=== PATIENT | female | born 1990 | race Caucasian/White ===

== ENCOUNTER 2017-05-22 19:59 | Emergency (ER) | payer OTHER ==
[~2017-05-22] VITALS: Ht 175.3 cm; Wt 65.8 kg
[~2017-05-22 19:59] MED LIST: BACTRIM DS TAB1 EACH PO; CEPHALEXIN500 MG PO; LEXAPRO10 MG PO; NORCO 5-325 TA1 EACH PO
[2017-05-22] MEDS ORDERED: BACTRIM DS TAB1 EACH PO (21:50)
[2017-05-22] MEDS ORDERED: CEPHALEXIN500 MG PO (21:50)
== END 2017-05-22 22:17 | disposition home or self-care (01) ==
LOC: ED 19:59
DX: L03.113 Cellulitis of right upper limb (principal); L03.116 Cellulitis of left lower limb; Z90.49 Acquired absence of other specified parts of digestive tract
CPT/HCPCS: 99283

== ENCOUNTER 2019-09-20 16:48 | Emergency (ER) | payer OTHER ==
[~2019-09-20] VITALS: Ht 175.3 cm; Wt 81.7 kg
--- OUTSIDE RECORDS SUMMARY | ~2019-09-20 | XMS | Encounter Summary ---
Demographics + + + | Address | [address] | | | [place] [address] | + + + | Home Phone | | + + + | Preferred Language | Unknown | + + + | Marital Status | | + + + | Holiness Affiliation | Unknown | + + + | Race | Unknown | + + + | Ethnic Group | Unknown | + + + Author + + + | Author | [facility] | | | and [place] | + + + | Organization | [facility] | | | and [place] | + + + | Address | Unknown | + + + | Phone | Unavailable | + + + Support + + +---------+ + | Name | Relationship | Address | Phone | + + +---------+ + | Jeanmarie Bharat | ECON | Unknown | | + + +---------+ + Care Team Providers + +------+ + | Care Survey Engineer Name | Role | Phone | + +------+ + PCP | Unavailable | + +------+ + Encounter Details +--------+ + + + + | Date | Type | Department | Care Team | Description | +--------+ + + + + | 05/10/ | Hospital | [facility] | Abbey Morin | Thrombocytopenia | | 2011 - | Encounter | [facility] | [place] [id number] | (FORMERLY [facility]); | | | | CLINICAL DECISION | [address] | Hyperbilirubinemia; | | 05/14/ | | [address] | [place], [place] | Petechiae or | | 2011 | | [place] | [address] | ecchymoses; | | | | [address] | [phone] | Thrombocytopenia, | | | | [phone] | | unspecified (HCC); | | | | | | Petechiae; Myalgia | +--------+ + + + + Social History + +-------+ +--------+------+ | Tobacco Use | Types | Packs/Day | Years | Date | | | | | Used | | + +-------+ +--------+------+ | Never Assessed | | | | | + +-------+ +--------+------+ + + + | Sex Assigned at | Date Recorded | | | | + + + | Not on file | | + + + + + + + | Job Start Date | Occupation | Industry | + + + + | Not on file | Not on file | Not on file | + + + + + + + + | Travel History | Travel Start | Travel End | + + + + + + | No recent travel history available. | + + documented as of this encounter Discharge Summaries Brendan Sahu MD - 05/14/2012 11:35 AM PDTFormatting of this note might be diff erent from the original. Discharge Summaries by Brendan Sahu MD at 05/14/12 2734 Author: Brendan Sahu MD Service: (none) Author Type: Physician Filed: 05/14/12 1832 Date of Service: 05/14/121134 Status: Signed Assembl[employer]: Brendan Sahu MD (Physician) [facility] Service: Hospitalist Discharge Summary Date of Admission: 05/10/2012 Date of Discharge: 05/14/12 Discharge Provider: Brendan Sahu MD Treatment Team: Consulting Physician: Sahra Linares MD Admitting Provider: Abbey Morin MD Discharge Diagnoses: Principal Problem: *Thrombocytopenia, unspecified Active Problems: Petechiae or ecchymoses Hyperbilirubinemia Resolved Problems: * No resolved hospital problems. * Procedures: * No surgery found * Significant Diagnostic Studies: RADHA MENA US PELVIS WITH ENDOVAGINAL 05/12/2012 5:29 PM HISTORY: 21 years. Female. Secondary amenorrhea with new vaginal bleeding TECHNIQUE: US PELVIS WITH ENDOVAGINAL. Pelvic sonogram via transabdominal and transvaginal route with or megahertz and 8-MHz transducers actively.. Total of 49 images obtained. COMPARISON: None. FINDINGS: Anteverted uterus = 6.8 x 2.4 x 5.4 cm. Endometrium = 3.9 mm. There are several bright refl ectors within the endometrium which may represent calcifications. No evidence of mass. No fr ee fluid in the cul-de-sac. The region of the cervix is normal in appearance. The ovaries are sonographically within normal in appearance there is a dominant follicle on the left ovary. Left ovary = 2.1 x 1.2 x 1.7 cm. Right ovary = 2 0.8 x 1.4 x 1.9 cm. IMPRESSION: 1. Overall unremarkable pelvic sonogram. 2. Bright reflectors within the endometrium likely representing some small calcifications c orrelate with clinical history of prior inflammatory process consider follow-up. This report has been prepared with a voice recognition system. The possibility of "sound alike" state wildlife officer errors, addition and/or deletions may occur. If there is any question about this report please contact the originating radiologist. F HISTORY OF PRESENTATION: The patient is a 21 y.o. female with no significant past medical history who presents wit h red dots and bruises all over her body that she initially noted about a week prior to admi ssion. She did not have any trauma or fall recently. Yesterday last night before she went to work she noticed that red dots increased in number all over her legs. She went to work last night at [employer]. 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 About 10 pm last night s he noted bruises of her legs. She also felt fatigued. She did not have any fever or chills. She also noticed that she had some mild blurring of vision earlier but she denies it current ly. She also had mild neck pain, stiffness and mild frontal headaches. She also felt numbnes s of both legs. She denied any recent viral illness preceding this. She denied any blood in the stools, epistaxis, hematuria or syncope. She denied any intake of new medications recent ly. She went to the ED of [facility] in [place], [place]. She was found out to have severe thrombocytopenia with a platelet count of 12,000 transferred here and admitted f or treatment and closer monitoring of her bleeding as she was a high risk for morbidity with the bleeding and low platelets. CT head according to the ED notes revealed no hemorrhage. P atient is adopted so does not know [facility] HOSPITAL COURSE: Patient was admitted, started on 70 mg of prednisone orally daily, Hem/Onc consulted and pl atelets monitored daily, had USG of abdomen and pelvis because of initial elevated liver enz ymes and vaginal bleeding which both improved rapidly after starting the prednisone and plat [place] [id number] by the day on discharge no new bleeding or b ruising noted therefore was discharged on 05/14/12. During work uphad positive OPAL and 2.0 S SB, I did discuss patient with our only [employer] Maker [employer] in [facility] Dr. Arrieta over the phon e and he suggested repeating OPAL and SSB once off the prednisone and if still elevated or if patietn exhibits physical signs of lupus or autoimmune disease like Sjogrens which the liana ent did not show during this admission, PCP or Hem/Onc should arrange referral to [facility] and he would be happy to see the patient on outpatient basis in the office should any o f those 2 eventualities occur. Past Medical History Diagnosis Date E coli infection Past Surgical History Procedure Date Cholecystectomy No Known Allergies Prescriptions prior to admission Medication Sig Dispense Refill Melatonin 3 MG CAPS Take 3 mg by mouth nightly as needed. DISCHARGE EXAM Vital Signs: BP 116/59 | Pulse 65 | Temp(Src) 96.8 F (36 C) (Oral) | Resp 16 | Ht 1.727 m (5' 8") | Wt 71.2 kg (156 lb 15.5 oz) | BMI 23.87 kg/m2 | SpO2 97% | LMP 05/10/2012 | ? N o Physical Exam Nursing note and vitals reviewed. Constitutional: She is oriented to person, place, and time. She appears well-developed and well-nourished. HENT: Head: Normocephalic and atraumatic. Right Ear: External ear normal. Left Ear: External ear normal. Nose: Nose normal. Mouth/Throat: Oropharynx is clear and moist. No oropharyngeal exudate. No bleeding oral mucosa and no enlarged cervical or occipital lymph nodes Eyes: Conjunctivae and EOM are normal. Pupils are equal, round, and reactive to light. Righ t eye exhibits no discharge. Left eye exhibits no discharge. No scleral icterus. Neck: Neck supple. No JVD present. No tracheal deviation present. No thyromegaly present. Cardiovascular: Normal rate, regular rhythm, normal heart sounds and intact distal pulses. Exam reveals no gallop and no friction rub. No murmur heard. Pulmonary/Chest: Effort normal and breath sounds normal. No stridor. No respiratory distres s. She has no wheezes. She has no rales. She exhibits no tenderness. Abdominal: Soft. Bowel sounds are normal. She exhibits no distension and no mass. There is no tenderness. There is no rebound and no guarding. Musculoskeletal: Normal range of motion. She exhibits no edema. Lymphadenopathy: She has no cervical adenopathy. Neurological: She is alert and oriented to person, place, and time. She has normal reflexes . She displays normal reflexes. No cranial nerve deficit. She exhibits normal muscle tone. C oordination normal. Skin: Skin is warm and dry. No erythema. Skin color, texture, turgor normal, small areas of now bluish ecchymoses on right foot and legs, wet mucous membranes, no psoriatic plaques, no added lesions since admission day. Psychiatric: She has a normal mood and affect. Her behavior is normal. Judgment and thought content normal. PLAN Disposition: Home Condition: Good Code Status: Full Code Discharge Instructions Diet general Other restrictions (specify): Scheduling Instructions: Avoid activities that will put you at increased risk of bleeding o r bruising like contact sports, at risk for falls, working with sharp objectsor similar acti elodia Call for: Scheduling Instructions: Go to [facility] if with increased bruising or bleeding Follow up: PCP of her choice which patietn and mom will make appointments for. in 1 week Sahra Linares MD [address] [facility] [address] On May 17 or after platelet count done on 05/16/12 with report to be sent to Dr. David merino office. José Miguel Velarde MD [address] [facility] [address] If needed as discussed above Medication List As of 05/14/2012 6:32 PM START taking these medications omeprazole 20 MG capsule Take 1 capsule by mouth every morning before breakfast. predniSONE 10 MG tablet 7 tablets daily with breakfast starting tomorrow and until you see Dr. 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 You may get these medications from any pharmacy. omeprazole 20 MG capsule predniSONE 10 MG tablet An After Visit Summary was printed and given to the patient. Patient verbalized understanding, agreement, and compliance with discharge plan. Discharge took more than 35 minutes, to include final examination, discussion of admission, and preparation of prescriptions, instructions for on-going care, follow-up and documentati on of discharge summary. Brendan Sahu MD 05/14/2012 documented in this encounter Progress Notes Conversion Transaction, Provider Unknown - 05/14/2012 1:05 PM PDTFormatting of this note m ight be different from the original. Progress Notes by Queenie Delanye RN at 05/14/12 1309 Author: Queenie Delaney RN Service: (none) Author Type: Registered Nurse Filed: 05/14/12 0876 Date of Service: 05/14/12 1305 Status: Signed Assembl[employer]: Queenie Delaney RN (Registered Nurse) D/c instructions and Rx's given and explained to pt and her mother, both state understandin g. Pt escorted via wheelchair to private vehicle. Pt left in stable condition. onver ghassan Transaction, Provider Unknown - 05/14/2012 7:22 AM PDT Progress Notes by Jyothi Bailey RN at 05/14/12 7543 Author: Jyothi Bailey RN Service: (none) Author Type: Registered Nurse Filed: 05/14/12722 Date of Service: 05/14/12721 Status: Signed Assembler [employer]: Jyothi Bailey RN (Registered Nurse) No change in assessment throughout the night, requested Ambien at bedtime, slept well. Den ied any pain or discomfort, small areas of petechiae noted on lower extremities. onver ghassan Transaction, Provider Unknown - 05/13/2012 10:00 PM PDT Progress Notes by Jyothi Bailey RN at 05/13/122199 Author: Jyothi Bailey RN Service: (none) Author Type: Registered Nurse Filed: 05/13/122221 Date of Service: 05/13/122199 Status: Signed Assembler [employer]: Jyothi Bailey RN (Registered Nurse) Patient stated she did not sleep well last night, Ambien offered and patient accepted to he lp sleep tonight. 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 onver ghassan Transaction, Provider Unknown - 05/13/2012 6:28 PM PDT Progress Notes by Queenei Delaney RN at 05/13/121827 Author: Queenie Delaney RN Service: (none) Author Type: Registered Nurse Filed: 05/13/121829 Date of Service: 05/13/121827 Status: Signed Assembler [employer]: Queenie Delaney RN (Registered Nurse) Pt in bed resting quietly with S.O. At bedside, denies needs at this time, no signs of blee ding, vss, will continue to monitor. Sahra Miller Ul - 05/13/2012 12:26 PM PDTFormatting of this note might be different from the origi nal. Progress Notes by Sahra Linares MD at 05/13/12 1226 Author: Sahra Linares MD Service: (none) Author Type: Physician Filed: 05/13/12 9376 Date of Service: 05/13/12 1226 Status: Signed Assembler [employer]: Sahra Linares MD (Physician) [facility] Service: Hematology/Oncology Progress Note Hospital Day: LOS: 3 days Post-Op Day: * No surgery found * SUBJECTIVE Patient Summary: Miss Mena is a 21-year-old female who was admitted to [facility] on May 10, 2012, with complaints of generalized bruising and petechiae on her skin. On further evaluation, the patient was noted to have low platelet count. Peripheral smear showed the patient had giant platelets. The patient was diagnosed with immune-mediated thrombocytopenia. She was started on steroid at 1 mg/kg dose. The patient has tolerated it well. Her Viral serology (hep b& C and HIV) were negative. Events Overnight: The patient at this time feels well. No significant new bleeding reported by the patient. Her vaginal bleeding improving She continues to have generalized weakness and lethargy. No other significant new complaints given by the patient in the last 24 hours. Scheduled Medications lidocaine buffered 1% 0.5 mL Subcutaneous Once omeprazole 20 mg Oral QAM AC Or pantoprazole 40 mg Intravenous QAM AC predniSONE 1 mg/kg Oral Daily with breakfast Continuous Infusions PRN Medications acetaminophen, acetaminophen, morphine, morphine, morphine, ondansetron, ondansetron, polye thylene glycol, zolpidem OBJECTIVE Vital Signs: BP 107/53 | Pulse 60 | Temp(Src) 97.6 F (36.4 C) (Oral) | Resp 16 | Ht 1.727 m (5' 8") | Wt 70.6 kg (155 lb 10.3 oz) | BMI 23.67 kg/m2 | SpO2 98% | LMP 05/10/2012 | ? No Temp: [96.2 F (35.7 C)-97.7 F (36.5 C)] 97.6 F (36.4 C) (05/13 851) BP: (100-115)/(52-66) 107/53 mmHg (05/13 851) Heart Rate: [48-73] 60 (05/13 851) Resp: [16-18] 16 (05/13 851) SpO2: [95 %-99 %] 98 % (05/13 851) Weight: [70.6 kg (155 lb 10.3 oz)] 70.6 kg (155 lb 10.3 oz) (05/12 5756) Skin: Warm, dry and intact with very few bruising and patechia. HEENT: PERRLA. EOMI. Conjunctivae are clear. Sclera anicteric. Oral mucosa is moist and pin k without lesions or evidence of thrush. Lungs: Clear to auscultation without wheezes, rales, or rhonchi. Respiratory effort relaxed . Heart: Regular rate and rhythm without murmurs, gallops, or rubs. Abdomen: Soft, nondistended, nontender. No masses are appreciated. No hepatosplenomegaly. A ctive bowel tones in all 4 quadrants. Lymphatics: There is no cervical, supraclavicular, axillary, or inguinal adenopathy. Extremities: No edema. Peripheral pulses intact. No cyanosis or varicosities. DATA CBC: Lab Results Component Value Date WBC 10.7 05/13/2012 RBC 4.02 05/13/2012 HGB 12.4 05/13/2012 HCT 35.8 05/13/2012 MCV 89.0 05/13/2012 MCH 30.8 05/13/2012 MCHC 34.6 05/13/2012 RDW 37.6 05/13/2012 PLT 36* 05/13/2012 MPV 9.4 05/13/2012 DIFFTYPE AUTOMATED 05/13/2012 CMP: Lab Results Component Value Date NA 145* 05/12/2012 K 3.3* 05/12/2012 CL 109 05/12/2012 CO2 26 05/12/2012 ANIONGAP 12 05/12/2012 GLUF 120* 05/12/2012 BUN 13 05/12/2012 CREATININE 0.92 05/12/2012 BCR 15 05/12/2012 CA 9.5 05/12/2012 PROT 7.2 05/12/2012 ALB 3.8 05/12/2012 GLOB 3.4 05/12/2012 BILITOT 0.8 05/12/2012 ALP 66 05/12/2012 AST 3* 05/12/2012 ALT 24 05/12/2012 EGFR >60 05/12/2012 PROBLEM LIST Principal Problem: *Thrombocytopenia, unspecified Active Problems: Petechiae or ecchymoses Hyperbilirubinemia ASSESSMENT & PLAN A 23-year-old female who was admitted to [facility] with a low platelet count, who thinks the patient was diagnosed with immune-mediated thrombocytopenia and was started on steroids. She does not have any new bleeding however her platelet count has improved to 36,000 from a previous level of 21,000 yesterday. The patient continues to have improvement in vaginal bleeding. Recommend to continue Prednisone. She has mild hypernatremia and hypokalemia. Treated as per hospitalitis. If platelets continue to improve she can be discharged tomarrow. Recommend follow up as out patient within a week. Code Status: Full Code SAHRA LINARES MD 05/13/2012 uis Alberto, Brendan Benito MD - 05/13/2012 7:55 AM PDT Progress Notes by Brendan Sahu MD at 05/13/12 0755 Author: Brendan Sahu MD Service: (none) Author Type: Physician Filed: 05/13/12 1131 Date of Service: 05/13/12 0755 Status: Signed Assembler [employer]: Brendan Sahu MD (Physician) [facility] Service: Hospitalist Progress Note Hospital Day: LOS: 3 days Post-Op Day: * No surgery found * SUBJECTIVE The patient is a 21 y.o. female with no significant past medical history who presents with red dots and bruises all over her body that she initially noted about a week prior to admiss [facility]. She did not have any trauma or fall recently. Yesterday last night before she went to [facility] she noticed that red dots increased in number all over her legs. She went to work last n ight at [employer]. 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 About 10 pm last night she noted bruises of her legs. She also felt fatigued. She did not have any fever or chills. e also noticed that she had some mild blurring of vision earlier but she denies it currently . She also had mild neck pain, stiffness and mild frontal headaches. She also felt numbness of both legs. She denied any recent viral illness preceding this. She denied any blood in e stools, epistaxis, hematuria or syncope. She denied any intake of new medications recently . She went to the ED of [facility] in [place], [place]. She was found out to sharma ve severe thrombocytopenia with a platelet count of 12,000. CT head according to the ED note s revealed no hemorrhage. Patient is adopted so does not know [facility] Events Overnight: Patient is seen and examined at bedside on follow up. Overnight Vital Sig ns have continued to be stable and patient continues to feel better no vomiting, no bloody s tools, no CP/Sob/. No new Petechiae or bleeding elswher vainal bleeding lesser . Scheduled Medications lidocaine buffered 1% 0.5 mL Subcutaneous Once omeprazole 20 mg Oral QAM AC Or pantoprazole 40 mg Intravenous QAM AC predniSONE 1 mg/kg Oral Daily with breakfast Continuous Infusions PRN Medications acetaminophen, acetaminophen, morphine, morphine, morphine, ondansetron, ondansetron, polye thylene glycol, zolpidem OBJECTIVE Vital Signs: BP 100/52 | Pulse 48 | Temp(Src) 97.7 F (36.5 C) (Oral) | Resp 18 | Ht 1.727 m (5' 8") | Wt 70.6 kg (155 lb 10.3 oz) | BMI 23.67 kg/m2 | SpO2 99% | LMP 05/10/2012 | ? No General Appearance: Alert, cooperative, no distress, appears stated age Head: Normocephalic, without obvious abnormality, atraumatic Eyes: PERRL, conjunctiva/corneas clear, EOM's intact, fundi benign, both eyes Ears: Normal TM's and external ear canals, both ears Nose: Nares normal, septum midline, mucosa normal no signs of dryness, no drainage or sinu s tenderness Throat: Lips, mucosa, and tongue normal; teeth and gums normal Neck: Supple, symmetrical, trachea midline, no adenopathy; thyroid: no enlargement/tenderness/nodules; no carotid bruit or JVD Back: Symmetric, no curvature, ROM normal, no CVA tenderness Lungs: Clear to auscultation bilaterally, respirations unlabored Chest Wall: No tenderness or deformity Heart: Regular rate and rhythm, S1 and S2 normal, no murmur, rub or gallop Abdomen: Soft, non-tender, bowel sounds active all four quadrants, no masses, no organomegaly Extremities: Extremities normal, atraumatic, no cyanosis or edema Pulses: 2+ and symmetric all extremities Skin: Skin color, texture, turgor normal, small areas of ecchymoses on right foot and legs , wet mucous membranes, no psoriatic plaques Lymph nodes: Cervical, supraclavicular, and axillary nodes normal Neurologic: CNII-XII intact, normal strength, sensation and reflexes throughout DATA CBC: Lab Results Component Value Date WBC 10.7 05/13/2012 RBC 4.02 05/13/2012 HGB 12.4 05/13/2012 HCT 35.8 05/13/2012 MCV 89.0 05/13/2012 MCH 30.8 05/13/2012 MCHC 34.6 05/13/2012 RDW 37.6 05/13/2012 PLT 36* 05/13/2012 MPV 9.4 05/13/2012 DIFFTYPE AUTOMATED 05/13/2012 CMP: Lab Results Component Value Date NA 145* 05/12/2012 K 3.3* 05/12/2012 CL 109 05/12/2012 CO2 26 05/12/2012 ANIONGAP 12 05/12/2012 GLUF 120* 05/12/2012 BUN 13 05/12/2012 CREATININE 0.92 05/12/2012 BCR 15 05/12/2012 CA 9.5 05/12/2012 PROT 7.2 05/12/2012 ALB 3.8 05/12/2012 GLOB 3.4 05/12/2012 BILITOT 0.8 05/12/2012 ALP 66 05/12/2012 AST 3* 05/12/2012 ALT 24 05/12/2012 EGFR >60 05/12/2012 PT/INR: No results found for this basename: PROTIME, INR PTT: No results found for this basename: APTT [APTT PROBLEM LIST Principal Problem: *Thrombocytopenia, unspecified Active Problems: Petechiae or ecchymoses Hyperbilirubinemia ASSESSMENT & PLAN Patient Active Hospital Problem List: Thrombocytopenia, unspecified (05/10/2012) Assessment: improving Plan: continue with prednisone and continue monitoring improvement per discussion w/ Dr. Linares today maybe can be discarged to khoury. when risk of sudden bleed less given Petechia e or ecchymoses (05/10/2012) Assessment: stable Plan: continue to monitor Hyperbilirubinemia (05/10/2012) Assessment: from her ? Autoimmune reactivity, continues to have normal values today, abdo pipe and pelvic USG no significant abnormality Plan: discontinue daily CMP I explained radiology and lab findings and plan of care to patient and she verbalized unde rstanding and agreement and had no more questions for me after my interaction with her. 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 Disposition: Inpatient Code Status: Full Code Brendan Sahu MD 05/13/2012 onversion Transaction, Provider Unknown - 05/13/2012 7:41 AM PDTFormatting of this note might be diff erent from the original. Progress Notes by Jackie Mancia RN at 05/13/12740 Author: Jackie Mancia RN Service: (none) Author Type: Registered Nurse Filed: 05/13/12741 Date of Service: 05/13/12740 Status: Signed Assembl[employer]: Jackie Mancia RN (Registered Nurse) Pt had a good night without any complaints. States she is hoping to go home today. Will con tinue to monitor. onver ghassan Transaction, Provider Unknown - 05/12/2012 4:35 PM PDT Progress Notes by Queenie Delaney RN at 05/12/12 163 Author: Queenie Delaney RN Service: (none) Author Type: Registered Nurse Filed: 05/12/125 Date of Service: 05/12/121634 Status: Signed Assembl[employer]: Queenie Delaney RN (Registered Nurse) Pt in room visiting with her S.O. Denies needs at this time. Vss, will continue to monitor. andy Sharma ARNP - 05/12/2012 9:37 AM PDT Progress Notes by JESSY Hannah at 05/12/1237 Author: JESSY Hannah Service: (none) Author Type: Advanced Registered Nurse Janes ctitioner Filed: 05/12/12 0949 Date of Service: 05/12/12936 Status: Signed Assembler [employer]: JESSY Hannah (Advanced Registered Nurse [place]) Cosigner: Sahra Linares MD at 05/13/12 1221 [facility] Service: Hematology/Oncology Progress Note Hospital Day: LOS: 2 days Post-Op Day: * No surgery found * SUBJECTIVE Patient Summary: This is a 21year female admitted with bruising, petechiae, and vagin al bleeding. Peripheral smear shows giant platelets consistent with peripheral destruction o f platelets. 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 Events Overnight: Patient complains of some nausea and mild epigastric discomfort. Co ntinues to have vaginal bleeding, but states it has decreased in flow in the past 2 days. De nies other sources of bleeding, or new bruising. Denies shortness of breath, chest pain, fev ers. Last BM was 2 days ago. Mother is in room and supportive. Scheduled Medications lidocaine buffered 1% 0.5 mL Subcutaneous Once omeprazole 20 mg Oral QAM AC Or pantoprazole 40 mg Intravenous QAM AC predniSONE 1 mg/kg Oral Daily with breakfast Continuous Infusions PRN Medications acetaminophen, acetaminophen, morphine, morphine, morphine, ondansetron, ondansetron, polye thylene glycol, zolpidem OBJECTIVE Vital Signs: BP 111/53 | Pulse 56 | Temp(Src) 97.2 F (36.2 C) (Oral) | Resp 16 | Ht 1.727 m (5' 8") | Wt 69.5 kg (153 lb 3.5 oz) | BMI 23.30 kg/m2 | SpO2 98% | LMP 05/10/2012 | ? No EXAM: BP 111/53 | Pulse 56 | Temp(Src) 97.2 F (36.2 C) (Oral) | Resp 16 | Ht 1.727 m (5' 8") | Wt 69.5 kg (153 lb 3.5 oz) | BMI 23.30 kg/m2 | SpO2 98% | LMP 05/10/2012 | ? No General: Alert and oriented. No acute distress. Vital signs are stable and within normal ra nge. Affect appropriate. ECOG status 0. Pain level is 0 on a scale of 0-10. Skin: Warm, dry and intact without rashes or ulcers. Lungs: Clear to auscultation without wheezes, rales, or rhonchi. Respiratory effort relaxed . Heart: Regular rate and rhythm without murmurs, gallops, or rubs. Abdomen: Soft, nondistended, nontender. No masses are appreciated. No hepatosplenomegaly. A ctive bowel tones in all 4 quadrants. Lymphatics: There is no cervical, supraclavicular, axillary, or inguinal adenopathy. Extremities: No edema. Peripheral pulses intact. No cyanosis or varicosities. Psychiatric: No signs of depression or anxiety. Maintains good eye contact, asks appropriat e questions, remains fully engaged. DATA CBC: Lab Results Component Value Date WBC 8.4 05/11/2012 RBC 4.33 05/11/2012 HGB 13.1 05/11/2012 HCT 38.4 05/11/2012 MCV 88.7 05/11/2012 MCH 30.2 05/11/2012 MCHC 34.1 05/11/2012 RDW 36.3* 05/11/2012 PLT 18* 05/11/2012 MPV 9.9 05/11/2012 DIFFTYPE AUTOMATED 05/11/2012 CMP: Lab Results Component Value Date NA 142 05/11/2012 K 3.9 05/11/2012 CL 111* 05/11/2012 CO2 23 05/11/2012 ANIONGAP 13 05/11/2012 GLUF 116* 05/11/2012 BUN 15 05/11/2012 CREATININE 0.72 05/11/2012 BCR 21 05/11/2012 CA 9.6 05/11/2012 PROT 7.3 05/11/2012 ALB 4.0 05/11/2012 GLOB 3.3 05/11/2012 BILITOT 2.3* 05/11/2012 ALP 67 05/11/2012 AST 9* 05/11/2012 ALT 26 05/11/2012 EGFR >60 05/11/2012 PROBLEM LIST Principal Problem: *Thrombocytopenia, unspecified Active Problems: Petechiae or ecchymoses Hyperbilirubinemia ASSESSMENT & PLAN Thrombocytopenia, unspecified (05/10/2012) Assessment: Patient with ITP. She is on prednisone 70mg (1mg/kg) daily. Platelet count sharma s increased to 18 from 10. Today's labs are pending. Plan: Continue on steroids. Hyperbilirubinemia (05/10/2012) Assessment: Unclear etiology of bilirubin of 2.3. Labs from today are pending. Plan: We will get an US of abdomen to further evaluate elevated bili, and to assess for s plenomegaly. Code Status: Full Code SANDY CANOJESSY 05/12/2012 uis Alberto, Brendan Benito MD - 05/12/2012 8:57 AM PDT Progress Notes by Brendan Sahu MD at 05/12/12 0857 Author: Brendan Sahu MD Service: (none) Author Type: Physician Filed: 05/12/12 1150 Date of Service: 05/12/12856 Status: Signed Assembler [employer]: Brendan Sahu MD (Physician) [facility] Service: Hospitalist Progress Note Hospital Day: LOS: 2 days Post-Op Day: * No surgery found * SUBJECTIVE The patient is a 21 y.o. female with no significant past medical history who presents with red dots and bruises all over her body that she initially noted about a week prior to admiss formerly [facility]. She did not have any trauma or fall recently. Yesterday last night before she went to [facility] she noticed that red dots increased in number all over her legs. She went to work last n ight at [employer]. 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 About 10 pm last night she noted bruises of her legs. She also felt fatigued. She did not have any fever or chills. e also noticed that she had some mild blurring of vision earlier but she denies it currently . She also had mild neck pain, stiffness and mild frontal headaches. She also felt numbness of both legs. She denied any recent viral illness preceding this. She denied any blood in th e stools, epistaxis, hematuria or syncope. She denied any intake of new medications recently . She went to the ED of [facility] in [place], [place]. She was found out to sharma ve severe thrombocytopenia with a platelet count of 12,000. CT head according to the ED note s revealed no hemorrhage. Patient is adopted so does not know FMHX Events Overnight: Patient is seen and examined at bedside on follow up. Overnight Vital Sig ns have been stable and patient and om state she lept real well but feels tired to day no gu m bleeding when brushing her teeth, no vomiting, no bloody stools, no CP/Sob/ Scheduled Medications lidocaine buffered 1% 0.5 mL Subcutaneous Once omeprazole 20 mg Oral QAM AC Or pantoprazole 40 mg Intravenous QAM AC predniSONE 1 mg/kg Oral Daily with breakfast Continuous Infusions PRN Medications acetaminophen, acetaminophen, morphine, morphine, morphine, ondansetron, ondansetron, polye thylene glycol, zolpidem OBJECTIVE Vital Signs: BP 111/53 | Pulse 56 | Temp(Src) 97.2 F (36.2 C) (Oral) | Resp 16 | Ht 1.727 m (5' 8") | Wt 69.5 kg (153 lb 3.5 oz) | BMI 23.30 kg/m2 | SpO2 98% | LMP 05/10/2012 | ? No General Appearance: Alert, cooperative, no distress, appears stated age Head: Normocephalic, without obvious abnormality, atraumatic Eyes: PERRL, conjunctiva/corneas clear, EOM's intact, fundi benign, both eyes Ears: Normal TM's and external ear canals, both ears Nose: Nares normal, septum midline, mucosa normal no signs of dryness, no drainage or sinu s tenderness Throat: Lips, mucosa, and tongue normal; teeth and gums normal Neck: Supple, symmetrical, trachea midline, no adenopathy; thyroid: no enlargement/tenderness/nodules; no carotid bruit or JVD Back: Symmetric, no curvature, ROM normal, no CVA tenderness Lungs: Clear to auscultation bilaterally, respirations unlabored Chest Wall: No tenderness or deformity Heart: Regular rate and rhythm, S1 and S2 normal, no murmur, rub or gallop Abdomen: Soft, non-tender, bowel sounds active all four quadrants, no masses, no organomegaly Extremities: Extremities normal, atraumatic, no cyanosis or edema Pulses: 2+ and symmetric all extremities Skin: Skin color, texture, turgor normal, small areas of ecchymoses on right foot and legs , wet mucous membranes, no psoriatic plaques Lymph nodes: Cervical, supraclavicular, and axillary nodes normal Neurologic: CNII-XII intact, normal strength, sensation and reflexes throughout DATA CBC: Lab Results Component Value Date WBC 9.5 05/12/2012 RBC 4.14 05/12/2012 HGB 12.8 05/12/2012 HCT 35.9 05/12/2012 MCV 86.6 05/12/2012 MCH 30.8 05/12/2012 MCHC 35.6* 05/12/2012 RDW 36.3* 05/11/2012 PLT 21* 05/12/2012 MPV 10.7 05/12/2012 DIFFTYPE AUTOMATED 05/12/2012 CMP: Lab Results Component Value Date NA 145* 05/12/2012 K 3.3* 05/12/2012 CL 109 05/12/2012 CO2 26 05/12/2012 ANIONGAP 12 05/12/2012 GLUF 120* 05/12/2012 BUN 13 05/12/2012 CREATININE 0.92 05/12/2012 BCR 15 05/12/2012 CA 9.5 05/12/2012 PROT 7.2 05/12/2012 ALB 3.8 05/12/2012 GLOB 3.4 05/12/2012 BILITOT 0.8 05/12/2012 ALP 66 05/12/2012 AST 3* 05/12/2012 ALT 24 05/12/2012 EGFR >60 05/12/2012 PT/INR: No results found for this basename: PROTIME, INR PTT: No results found for this basename: APTT [APTT PROBLEM LIST Principal Problem: *Thrombocytopenia, unspecified Active Problems: Petechiae or ecchymoses Hyperbilirubinemia ASSESSMENT & PLAN Patient Active Hospital Problem List: Thrombocytopenia, unspecified (05/10/2012) Assessment: improving Plan: continue with prednisone and continue monitoring improvement per Dr. Carolyne rhodes when risk of sudden bleed less given Petechiae or ecchymoses (05/10/2012) Assessment: stable Plan: continue to monitor Hyperbilirubinemia (05/10/2012) Assessment: from her ? Autoimmune reactivity, normal value today, abdominal and pelvic US G ordered and pending Plan: continue to monitor improvent I explained radiology and lab findings and plan of care to patient and relative and they ve rbalized understanding and agreement and had no more questions for me after my interaction w ith them. More than 35 minutes spent directly face to face with patient for physical examina tion and talking with her and relatives at bedside, chart review, coordinating care with oth er providers, formulating a plan of care and management as well as Computerized Physician Or amita Entry. Disposition: Inpatient Code Status: Full Code Brendna Sahu MD 05/12/2012 onversion Transaction, Provider Unknown - 05/12/2012 6:47 AM PDTFormatting of this note might be diff erent from the original. Progress Notes by Jackie Mancia RN at 05/12/12646 Author: Jackie Mancia RN Service: (none) Author Type: Registered Nurse Filed: 05/12/1248 Date of Service: 05/12/12646 Status: Signed Assembler [employer]: Jackie Mancia RN (Registered Nurse) Pt slept well overnight. States despite having noticed a couple of new bruises on her feet that she doesn't have any new symptoms. Pt reports that her menses seems much controls engineer now. H as not voided overnight but states that she never urinates during the night. No further carrington ges in assessment will continue to monitor. onver ghassan Transaction, Provider Unknown - 05/11/2012 5:59 PM PDT Progress Notes by Queenie Delaney RN at 05/11/121758 Author: Queenie Delaney RN Service: (none) Author Type: Registered Nurse Filed: 05/11/12 1800 Date of Service: 05/11/121758 Status: Signed Assembler [employer]: Queenie Delaney RN (Registered Nurse) Pt in room resting quietly, denies needs at this time. Pt and family given information on L upus. Vss, will continue to monitor. Sahra Miller Ul - 05/11/2012 1:25 PM PDTFormatting of this note might be different from the origi nal. Progress Notes by Sahra Linares MD at 05/11/12 1325 Author: Sahra Linares MD Service: Hematology/Oncology Author Type: Physician Filed: 05/13/12 1226 Date of Service: 05/11/121324 Status: Signed Assembler [employer]: Sahra Linares MD (Physician) [facility] Service: Hematology/Oncology Progress Note Hospital Day: LOS: 1 day Post-Op Day: * No surgery found * SUBJECTIVE Patient Summary: Miss Mena is a 21-year-old female who was admitted to [facility] on May 10, 2012, with complaints of generalized bruising and petechiae on her skin. On further evaluation, the patient was noted to have low platelet count. Peripheral smear showed the patient had giant platelets. The patient was diagnosed with immune-mediated thrombocytopenia. She was started on steroid at 1 mg/kg dose. The patient has tolerated it well. The patient at this time feels well. No significant new bleeding reported by the patient. She continues to have vaginal bleeding. She continues to have generalized weakness and lethargy. No other significant new complaints given by the patient in the last 24 hours. Events Overnight: No new bleeding; she still has vaginal bleeding. Continue to have g eneralized weakness Scheduled Medications lidocaine buffered 1% 0.5 mL Subcutaneous Once omeprazole 20 mg Oral QAM AC Or pantoprazole 40 mg Intravenous QAM AC predniSONE 1 mg/kg Oral Daily with breakfast DISCONTD: sodium chloride 3 mL Intravenous Q8H Continuous Infusions PRN Medications acetaminophen, acetaminophen, morphine, morphine, morphine, ondansetron, ondansetron, polye thylene glycol, zolpidem OBJECTIVE Vital Signs: BP 96/47 | Pulse 60 | Temp(Src) 97.4 F (36.3 C) (Oral) | Resp 18 | Ht 1.727 m (5' 8") | Wt 68.1 kg (150 lb 2.1 oz) | BMI 22.83 kg/m2 | SpO2 98% | LMP 05/10/2012 | ? N o Temp: [96.2 F (35.7 C)-97.6 F (36.4 C)] 97.4 F (36.3 C) (07/12 1143) BP: (96-112)/(47-66) 96/47 mmHg (05/11 1143) Heart Rate: [48-78] 60 (05/11 1143) Resp: [16-18] 18 (05/11 1143) SpO2: [96 %-98 %] 98 % (05/11 1143) Height: [172.7 cm (5' 8")] 172.7 cm (5' 8") (05/10 1436) Weight: [67.087 kg (147 lb 14.4 oz)-68.1 kg (150 lb 2.1 oz)] 68.1 kg (150 lb 2.1 oz) (04/30 0427) BMI (Calculated): [22.5] 22.5 (05/10 1436) Skin: Warm, dry and intact with few bruising and patechia. HEENT: PERRLA. EOMI. Conjunctivae are clear. Sclera anicteric. Oral mucosa is moist and pin k without lesions or evidence of thrush. Lungs: Clear to auscultation without wheezes, rales, or rhonchi. Respiratory effort relaxed . Heart: Regular rate and rhythm without murmurs, gallops, or rubs. Abdomen: Soft, nondistended, nontender. No masses are appreciated. No hepatosplenomegaly. A ctive bowel tones in all 4 quadrants. Lymphatics: There is no cervical, supraclavicular, axillary, or inguinal adenopathy. Extremities: No edema. Peripheral pulses intact. No cyanosis or varicosities. DATA CBC: Lab Results Component Value Date WBC 8.4 05/11/2012 RBC 4.33 05/11/2012 HGB 13.1 05/11/2012 HCT 38.4 05/11/2012 MCV 88.7 05/11/2012 MCH 30.2 05/11/2012 MCHC 34.1 05/11/2012 RDW 36.3* 05/11/2012 PLT 18* 05/11/2012 MPV 9.9 05/11/2012 DIFFTYPE AUTOMATED 05/11/2012 CMP: Lab Results Component Value Date NA 142 05/11/2012 K 3.9 05/11/2012 CL 111* 05/11/2012 CO2 23 05/11/2012 ANIONGAP 13 05/11/2012 GLUF 116* 05/11/2012 BUN 15 05/11/2012 CREATININE 0.72 05/11/2012 BCR 21 05/11/2012 CA 9.6 05/11/2012 PROT 7.3 05/11/2012 ALB 4.0 05/11/2012 GLOB 3.3 05/11/2012 BILITOT 2.3* 05/11/2012 ALP 67 05/11/2012 AST 9* 05/11/2012 ALT 26 05/11/2012 EGFR >60 05/11/2012 PROBLEM LIST Principal Problem: *Thrombocytopenia, unspecified Active Problems: Petechiae or ecchymoses Hyperbilirubinemia ASSESSMENT & PLAN A 23-year-old female who was admitted to [facility] with a low platelet count, who thinks the patient was diagnosed with immune-mediated thrombocytopenia and was started on steroids. The patient, at this time, does not have any significant change in her symptoms. She does not have any new bleeding however her platelet count has improved to 18,000 from a previous level of 10,000 yesterday. The patient continues to have vaginal bleeding. The patient had extensive blood work done which showed that there was no significant evidence of hepatitis B, hepatitis C, or HIV. The patient had antibody positive for hepatitis A which is not usually associated with chronic infection. The patient's OPAL titer was positive. This need further evaluation. The patient should be evaluated by a ophthalmic asst if she has lupus. Lupus can be associated with immune-mediated thrombocytopenia. The patient's bilirubin is elevated. Her AST and ALT are within normal range. It would be prudent to do an ultrasound of her abdomen which would also evaluate her spleen size. Will continue to follow the patient throughout her stay in the hospital. The patient's condition was discussed with her mother an aunt in her presence. They were briefly explained her diagnosis. At this time, I would not advise her to be discharged. Code Status: Full Code SAHRA LINARES MD 05/11/2012 onversion Transaction, Provider Unknown - 05/11/2012 11:23 AM PDTFormatting of this note might be different from th e original. Progress Notes by Clementina Mcelroy RPH at 05/11/12 1123 Author: Clementina Mcelroy RPH Service: (none) Author Type: Pharmacist Filed: 05/11/12 1123 Date of Service: 05/11/121122 Status: Signed Assembler [employer]: Clementina Mcelroy RPH (Pharmacist) Crcl~125ml/min no medications need adjustments. Contact pharmacy if further assistance is jojo rodriguez. Clementina Mcelroy >> RENA SANTACRUZ 05/10/2012 17:05 Clinical Pharmacy note: Renal Dosing Monitoring Radha Mena 21 yrs Female 1.727 m (5' 8") 67.087 kg (147 lb 14.4 oz) CrCl is unknown because no creatinine reading has been taken. Pharmacy dosing plan per protocol: No medications require dose adjustment at this time. Pharmacy will continue monitoring patient for appropriate dosing per renal function. 05/10/2012 5:05 PM Pharmacist: RENA SANTACRUZ PharmD Brendan Hilton MD - 05/11/2012 8:26 AM PDTFormatting of this note might be different f rom the original. Progress Notes by Brendan Sahu MD at 05/11/12825 Author: Brendan Sahu MD Service: (none) Author Type: Physician Filed: 05/11/121800 Date of Service: 05/11/12825 Status: Signed Assembler [employer]: Brendan Sahu MD (Physician) [facility] Service: Hospitalist Progress Note Hospital Day: LOS: 1 day Post-Op Day: * No surgery found * SUBJECTIVE Patient Summary: The patient is a 21 y.o. female with no significant past medical his tory who presents with red dots and bruises all over her body that she initially noted about a week prior to admission. She did not have any trauma or fall recently. Yesterday last nig ht before she went to work she noticed that red dots increased in number all over her legs. She went to work last night at [employer]. 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 Abo ak 10 pm last night she noted bruises of her legs. She also felt fatigued. She did not have any fever or chills. She also noticed that she had some mild blurring of vision earlier but she denies it currently. She also had mild neck pain, stiffness and mild frontal headaches. She also felt numbness of both legs. She denied any recent viral illness preceding this. She denied any blood in the stools, epistaxis, hematuria or syncope. She denied any intake of n ew medications recently. She went to the ED of [facility] in [place], [place]. She was found out to have severe thrombocytopenia with a platelet count of 12,000. CT head a ccording to the ED notes revealed no hemorrhage. Patient is adopted so does not know FMHX Events Overnight: Patient is seen and examined at bedside on follow up. Overnight Vit al Signs have been stable and patient states that they subjectively feel better today with n o complaints of CP/SOB/N/V photophobia, no increased bleeding had a a new bruise appear on h er right foot. Scheduled Medications lidocaine buffered 1% 0.5 mL Subcutaneous Once omeprazole 20 mg Oral QAM AC Or pantoprazole 40 mg Intravenous QAM AC predniSONE 1 mg/kg Oral Once - Now predniSONE 1 mg/kg Oral Daily with breakfast DISCONTD: sodium chloride 3 mL Intravenous Q8H Continuous Infusions PRN Medications acetaminophen, acetaminophen, morphine, morphine, morphine, ondansetron, ondansetron, polye thylene glycol, zolpidem OBJECTIVE Vital Signs: BP 102/66 | Pulse 66 | Temp(Src) 96.4 F (35.8 C) (Oral) | Resp 16 | Ht 1.727 m (5' 8") | Wt 68.1 kg (150 lb 2.1 oz) | BMI 22.83 kg/m2 | SpO2 97% | LMP 05/10/2012 | ? No General Appearance: Alert, cooperative, no distress, appears stated age Head: Normocephalic, without obvious abnormality, atraumatic Eyes: PERRL, conjunctiva/corneas clear, EOM's intact, fundi benign, both eyes Ears: Normal TM's and external ear canals, both ears Nose: Nares normal, septum midline, mucosa normal no signs of dryness, no drainage or sin us tenderness Throat: Lips, mucosa, and tongue normal; teeth and gums normal Neck: Supple, symmetrical, trachea midline, no adenopathy; thyroid: no enlargement/tenderness/nodules; no carotid bruit or JVD Back: Symmetric, no curvature, ROM normal, no CVA tenderness Lungs: Clear to auscultation bilaterally, respirations unlabored Chest Wall: No tenderness or deformity Heart: Regular rate and rhythm, S1 and S2 normal, no murmur, rub or gallop Abdomen: Soft, non-tender, bowel sounds active all four quadrants, no masses, no organomegaly Extremities: Extremities normal, atraumatic, no cyanosis or edema Pulses: 2+ and symmetric all extremities Skin: Skin color, texture, turgor normal, small areas of ecchymoses on right foot and leg s, wet mucous membranes, no psoriatic plaques Lymph nodes: Cervical, supraclavicular, and axillary nodes normal Neurologic: CNII-XII intact, normal strength, sensation and reflexes throughout DATA CBC: Lab Results Component Value Date WBC 8.4 05/11/2012 RBC 4.33 05/11/2012 HGB 13.1 05/11/2012 HCT 38.4 05/11/2012 MCV 88.7 05/11/2012 MCH 30.2 05/11/2012 MCHC 34.1 05/11/2012 RDW 36.3* 05/11/2012 PLT 18* 05/11/2012 MPV 9.9 05/11/2012 DIFFTYPE AUTOMATED 05/11/2012 CMP: Lab Results Component Value Date NA 142 05/11/2012 K 3.9 05/11/2012 CL 111* 05/11/2012 CO2 23 05/11/2012 ANIONGAP 13 05/11/2012 GLUF 116* 05/11/2012 BUN 15 05/11/2012 CREATININE 0.72 05/11/2012 BCR 21 05/11/2012 CA 9.6 05/11/2012 PROT 7.3 05/11/2012 ALB 4.0 05/11/2012 GLOB 3.3 05/11/2012 BILITOT 2.3* 05/11/2012 ALP 67 05/11/2012 AST 9* 05/11/2012 ALT 26 05/11/2012 EGFR >60 05/11/2012 BMP: Lab Results Component Value Date NA 142 05/11/2012 K 3.9 05/11/2012 CL 111* 05/11/2012 CO2 23 05/11/2012 ANIONGAP 13 05/11/2012 GLUF 116* 05/11/2012 BUN 15 05/11/2012 CREATININE 0.72 05/11/2012 BCR 21 05/11/2012 CA 9.6 05/11/2012 EGFR >60 05/11/2012 Calcium: No results found for this basename: CALCIUM Magnesium: No results found for this basename: MG Phosphorus: No results found for this basename: PHOS PROBLEM LIST Principal Problem: *Thrombocytopenia, unspecified Active Problems: Petechiae or ecchymoses Hyperbilirubinemia ASSESSMENT & PLAN Patient Active Hospital Problem List: Thrombocytopenia, unspecified (05/10/2012) Assessment: improving Plan: continue with prednisone and continue monitoring improvement per Dr. Linares dischroseann e patietn when risk of sudden bleed less given Positive OPAL and SSB Dr. Linares also recommen ded a Rheumatology consult, Talked with Dr. Velarde of Rheumatology he is going on vacation tonight so he suggested having patient have a repeat OPAL and SSb after prednisone tapered of f on outpatient basisand if still elevated have patient see him on outpatient basis Petechiae or ecchymoses (05/10/2012) Assessment: stable Plan: continue to monitor Hyperbilirubinemia (05/10/2012) Assessment: from her ? Autoimmune reactivity Plan: continue to monitor improvent I explained radiology and lab findings and plan of care to patient and relative and they ve rbalized understanding and agreement and had no more questions for me after my interaction w ith them. More than 35 minutes spent directly face to face with patient for physical examina tion and talking with her and relatives at bedside, chart review, coordinating care with oth er providers, formulating a plan of care and management as well as Computerized Physician Or amita Entry. Disposition: Inpatient Code Status: Full Code Brendan Sahu MD 05/11/2012 onversion Transaction, Provider Unknown - 05/11/2012 5:33 AM PDTFormatting of this note might be diff erent from the original. Progress Notes by Jackie Mancia RN at 05/11/12532 Author: Jackie Mancia RN Service: (none) Author Type: Registered Nurse Filed: 05/11/1234 Date of Service: 05/11/12532 Status: Signed Assembler [employer]: Jackie Mancia RN (Registered Nurse) Pt without any new symptoms overnight. Slept well. Continues to complain of mild pain in le gs but refuses intervention. No new petechiae or bruising noted. Bleeding precautions contin ued. No changes in previous assessment. Will continue to monitor. onver ghassan Transaction, Provider Unknown - 05/10/2012 5:05 PM PDT Progress Notes by Rena Santacruz RPH at 05/10/12 170 Author: Rena Santacruz RPH Service: (none) Author Type: Pharmacist Filed: 05/10/121704 Date of Service: 05/10/121704 Status: Signed Assembler [employer]: Rena Santacruz RPH (Pharmacist) Clinical Pharmacy note: Renal Dosing Monitoring Radha Mena 21 yrs Female 1.727 m (5' 8") 67.087 kg (147 lb 14.4 oz) CrCl is unknown because no creatinine reading has been taken. Pharmacy dosing plan per protocol: No medications require dose adjustment at this time. Pharmacy will continue monitoring patient for appropriate dosing per renal function. 05/10/2012 5:05 PM Pharmacist: RENA SANTACRUZ PharmD Abbey Marcum MD - 05/10/2012 12:06 PM PDTFormatting of this note might be different from th dao original. Partial Note by Abbey Morin MD at 05/10/12 1206 Author: Abbey Morin MD Service: (none) Author Type: Physician Filed: 05/10/121206 Date of Service: 05/10/12 120 Status: Signed Assembler Sandal Parts: Abbey Morin MD (Physician) Dr. Laureano discussed case with me. He stated that Dr. Linares recommended giving prednisone 1 mg/kg/day. We will start that for her. ABBEY MORIN MD 05/10/2012 12:07 PM Jing Conner MSW - 05/10/2012 10:59 AM PDTFormatting of this note might be different from the ella ginal. 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 Pt has her Aun t & Uncle at the bs with her at this time. Pt is independent with ADLs, uses do DME, never used HH. Pt does not have a POA. Pt reports that her Father will be transporting her home and caring for her post DC as needed. Pt lives in [place], [place] and will need assistance raghav eduardo with a PCP. No other needs identified at this time. CRM to follow as clinical course progresses. Arabella Avila CM Conditioner Tumbler Operator documented in this encounter Plan of Treatment Not on filedocumented as of this encounter Procedures + +--------+ + + + | Procedure Name | Priori | Date/Time | Associated Diagnosis | Comments | | | ty | | | | + +--------+ + + + | US PELVIS W | Routin | 05/12/2012 | | Results for this | | TRANSVAGINAL | e | 6:18 PM | | procedure are in the | | | | PDT | | results section. | + +--------+ + + + | US ABDOMEN COMPLETE | Routin | 05/12/2012 | | Results for this | | | e | 6:17 PM | | procedure are in the | | | | PDT | | results section. | + +--------+ + + + documented in this encounter Results US Pelvis W Transvaginal (05/12/2012 6:18 PM PDT) + + | Specimen | + + | | + + + + + | Narrative | Performed At | + + + | [facility] US PELVIS WITH ENDOVAGINAL 05/12/2012 5:29 PM | | | HISTORY: 21 years. Female. Secondary amenorrhea with new vaginal | | | bleeding TECHNIQUE: US PELVIS WITH ENDOVAGINAL. Pelvic sonogram | | | via transabdominal and transvaginal route with or megahertz and 8-MHz | | | transducers actively.. Total of 49 images obtained. | | | COMPARISON: None. FINDINGS: Anteverted uterus = 6.8 x 2.4 x 5.4 | | | cm. Endometrium = 3.9 mm. There are several bright reflectors | | | within the endometrium which may represent calcifications. No | | | evidence of mass. No free fluid in the cul-de-sac. The region of | | | the cervix is normal in appearance. The ovaries are sonographically | | | within normal in appearance there is a dominant follicle on the left | | | ovary. Left ovary = 2.1 x 1.2 x 1.7 cm. Right ovary = 2 0.8 x 1.4 x | | | 1.9 cm. IMPRESSION: 1. Overall unremarkable pelvic sonogram. | | | 2. Bright reflectors within the endometrium likely representing some | | | small calcifications correlate with clinical history of prior | | | inflammatory process consider follow-up. This report has been | | | prepared with a voice recognition system. The possibility of "sound | | | alike" state wildlife officer errors, addition and/or deletions may occur. If | | | there is any question about this report please contact the | | | originating radiologist. | | + + + + + | Procedure Note | + + | Justin, Rad Conversion - 06/23/2019 3:36 AM PDT RAD[facility] Hyman PORTVALERI PELVIS WITH | | ENDOVAGINAL05/12/2012 5:29 PM HISTORY:21 years. Female. Secondary amenorrhea with new | | vaginal bleeding TECHNIQUE:US PELVIS WITH ENDOVAGINAL. Pelvic sonogram via | | transabdominal and transvaginal route with or megahertz and 8-MHz transducers actively.. | | Total of 49 images obtained. COMPARISON:None. FINDINGS:Anteverted uterus = 6.8 x 2.4 | | x 5.4 cm. Endometrium = 3.9 mm. There are several bright reflectors within the | | endometrium which may represent calcifications. No evidence of mass. No free fluid in | | the cul-de-sac. The region of the cervix is normal in appearance.The ovaries are | | sonographically within normal in appearance there is a dominant follicle on the left | | ovary. Left ovary = 2.1 x 1.2 x 1.7 cm. Right ovary = 2 0.8 x 1.4 x 1.9 cm. | | IMPRESSION:1. Overall unremarkable pelvic sonogram.2. Bright reflectors within the | | endometrium likely representing some small calcifications correlate with clinical | | history of prior inflammatory process consider follow-up. This report has been prepared | | with a voice recognition system.The possibility of "sound alike" state wildlife officer errors, | | addition and/or deletions may occur. If there is any question about this report please | | contact the originating radiologist. Electronically signed by Hernandez Mcdowell MD on | | 05/12/2012 6:37 PM | |The ovaries are sonographically within normal in appearance there is a dominant follicle on the left ovary. Left ovary = 2.1 x 1.2 x 1.7 cm. Right ovary = 2 0.8 x 1.4 x 1.9 cm. | | | |IMPRESSION: | |1. Overall unremarkable pelvic sonogram. | |2. Bright reflectors within the endometrium likely representing some small calcifications correlate with clinical history of prior inflammatory process consider follow-up. | | | |This report has been prepared with a voice recognition system. | |The possibility of "sound alike" state wildlife officer errors, addition and/or deletions may occur. If there is any question about this report please contact the originating radiologist. | | | | | + + US Abdomen Complete (05/12/2012 6:17 PM PDT) + + | Specimen | + + | | + + + + + | Narrative | Performed At | + + + | [facility] US ABDOMEN COMPLETE 05/12/2012 5:28 PM HISTORY: | | | 21 years. Female. Low platelet count question ITP TECHNIQUE: | | | US ABDOMEN COMPLETE. Abdominal sonogram using a curved array | | | transducer combination of grayscale and color mapping images presented | | | for interpretation. Total of 50 images obtained. COMPARISON: | | | None. FINDINGS: Pancreas: Normal liver: Normal. Gallbladder: | | | Surgically absent. CBD = 2.6 mm. IVC and aorta: Normal in caliber. | | | Spleen = 9.3 centimeters. Kidneys are sonographically normal in | | | appearance with normal echogenicity. The intra-renal blood flow seen | | | on color mapping images. Right kidney = 10.4 x 4.2 x 4.6 cm. Left | | | kidney = 9.4 x 5 x 4.7 cm. IMPRESSION: 1. Unremarkable | | | abdominal sonogram. This report has been prepared with a voice | | | recognition system. The possibility of "sound alike" state wildlife officer | | | errors, addition and/or deletions may occur. If there is any | | | question about this report please contact the originating radiologist. | | | | | | PM | | + + + + + | Procedure Note | + + | Carlos Eduardo Anderson Conversion - 06/23/2019 3:36 AM PDT [facility] J PORTERUS ABDOMEN | | COMPLETE05/12/2012 5:28 PM HISTORY:21 years. Female. Low platelet count question ITP | | TECHNIQUE:US ABDOMEN COMPLETE. Abdominal sonogram using a curved array transducer | | combination of grayscale and color mapping images presented for interpretation. Total | | of 50 images obtained. COMPARISON:None. FINDINGS:Pancreas: Normalliver: | | Normal.Gallbladder: Surgically absent.CBD = 2.6 mm.IVC and aorta: Normal in | | caliber.Spleen = 9.3 centimeters.Kidneys are sonographically normal in appearance with | | normal echogenicity. The intra-renal blood flow seen on color mapping images.Right | | kidney = 10.4 x 4.2 x 4.6 cm.Left kidney = 9.4 x 5 x 4.7 cm. IMPRESSION:1. | | Unremarkable abdominal sonogram. This report has been prepared with a voice recognition | | system.The possibility of "sound alike" state wildlife officer errors, addition and/or deletions | | may occur. If there is any question about this report please contact the originating | | radiologist. | |FINDINGS: | |Pancreas: Normal | |liver: Normal. | |Gallbladder: Surgically absent. | |CBD = 2.6 mm. | |IVC and aorta: Normal in caliber. | |Spleen = 9.3 centimeters. | |Kidneys are sonographically normal in appearance with normal echogenicity. The intra-renal blood flow seen on color mapping images. | |Right kidney = 10.4 x 4.2 x 4.6 cm. | |Left kidney = 9.4 x 5 x 4.7 cm. | | | |IMPRESSION: | |1. Unremarkable abdominal sonogram. | | | |This report has been prepared with a voice recognition system. | |The possibility of "sound alike" state wildlife officer errors, addition and/or deletions may occur. If there is any question about this report please contact the originating radiologist. | | | | | + + documented in this encounter Visit Diagnoses + + | Diagnosis | + + | Thrombocytopenia (HCC) Thrombocytopenia, unspecified | + + | Hyperbilirubinemia Disorders of bilirubin excretion | + + | Petechiae or ecchymoses Spontaneous ecchymoses | + + | Thrombocytopenia, unspecified (HCC) Thrombocytopenia, unspecified | + + | Petechiae Spontaneous ecchymoses | + + | Myalgia Mylagia and myositis, unspecified | + + documented in this encounter
--- OUTSIDE RECORDS SUMMARY | ~2019-09-20 | XMS | Encounter Summary ---
Demographics + + + | Address | [address] | | | [place] [address] | + + + | Home Phone | | + + + | Preferred Language | Unknown | + + + | Marital Status | | + + + | Judaism Affiliation | Unknown | + + + | Race | Unknown | + + + | Ethnic Group | Unknown | + + + Author + + + | Author | [facility] | | | and [place] | + + + | Organization | [facility] | | | and [place] [...] Team Providers + +------+ + | Care Castings Trimmer Name | Role | Phone | + [...] | | | | CENTER [address] | [address] [place] | hematuria, site | | | | [place], [place] | [place] [address] | unspecified (Primary | | | | [address] | [phone] | Dx) | | | | [phone] | | | +--------+ + + + [...] Care Everywhere.URINARY TRACT I NFECTIONS IN WOMEN (UKRAINIAN)documented in this encounter Medications at Time of [...] [address] | [place] | [phone] | | [facility] | | [address] | | | - LABORATORY | | | | + + + + + Urinalysis with Microscopic with Culture if Indicated (05/07/2017 10:42 AM PDT) + + + + + + | Component | Value | Ref Range | Performed | Pathologist | | | | | At | Signature | + + + + + + | Color | Brown (A)Comment: This | Light Yellow, | [facility] | | | | is a corrected result. | Yellow, [...] - 1.030 | [facility] | | | [place] | | | [facility] | [...] + + + + + + | WBC UA | 50-100 (A) | 0 - 2 /HPF | [facility] | | | | | | [facility] | | | | | | MEDICAL | | | | | | CENTER - | | | | | | LABORATORY | | + + + + + + | RBC UA | >100 (A) | 0 - 2 /HPF | [facility] | | | | | | [facility] | | | | | | MEDICAL | | | | | | CENTER - | | | | | | LABORATORY | | + + + + + + | SQUAMOUS | 2-5 (A) | 0 - 2 /LPF | [facility] | | | [facility] | | | [facility] | | | UA | | | MEDICAL | | | | | | CENTER - | | | | | | LABORATORY | | + + + + + + | BACTERIA UA | 3+ (A) | Negative /HPF | [facility] | | | | | [...] + + | [facility] | [address] | [place] | [phone] | | [facility] | | [address] | | | - LABORATORY | | [...]
--- OUTSIDE RECORDS SUMMARY | ~2019-09-20 | XMS | Clinical Summary ---
Demographics + + + | Address | [address] | | | [place] [address] | + + + | Home Phone | | + + + | Preferred Language | Unknown | + + + | Marital Status | | + + + | Samaritan Affiliation | Unknown | + + + | Race | Unknown | + + + | Ethnic Group | Unknown | + + + Author + + + | Author | [facility] | | | and [place] | + + + | Organization | [facility] | | | and [place] [...] Team Providers + +------+ + | Care Sheet Catcher Name | Role | Phone | + +------+ + | Lirba Kimble | PCP | | | PA-C [...] | | | Dtap/Tdap/Td (1 - | 0 | | | | Tdap) | | | | + + + + + | Cervical Cancer | | | | | Screening (Pap) | 2 | | | + + + + + | Vaccine: Influenza | | | | | (#1) | 9 | | | + + + + [...] +---------+--------+ | MEDICAID [place] | MEDICA | [id number] | 07/01/20 | [phone] | | Medica [...] | 1990 | [phone] | [place] [address] | | | elena | | | 4 (Home) | | + +--------+ +--------+ + + Advance Directives + + + + + | Type | Date Recorded | Patient | Explanation | | | | 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
--- OUTSIDE RECORDS SUMMARY | 2019-09-20 16:52 | XMS ---
PreManage Notification: RADHA ALCALA Security Call Out Operator Events No recent Security Events currently on file CRITERIA MET - PDMP CARE PROVIDERS Libra Lilly Current PAC PHONE: Unknown Isabel has no Care Guidelines for this patient. E.DBrunilda VISIT COUNT (12 MO.) 2 [facility]more TOTAL 2 NOTE: Visits indicate total known visits. ED/UCC VISIT TRACKING (12 MO.) 09/20/2019 16:50 [facility] [place] TYPE: Emergency COMPLAINT: - INNER L THIGH CYST 05/09/2019 17:50 [facility] [place] TYPE: Emergency COMPLAINT: - VOMITING,FEVER,POSS DEHYDRATION DIAGNOSES: - Dehydration - Fever, unspecified INPATIENT VISIT TRACKING (12 MO.) No inpatient visits to display in this time frame [email or web address]
[2019-09-20] MEDS ORDERED: VYVANSE60 MG PO (17:13)
[2019-09-20] MEDS ORDERED: LAMOTRIGINE25 MG PO (17:13)
[2019-09-20] MEDS ORDERED: DOXYCYCLINE HY100 MG PO (17:14)
== END 2019-09-20 17:17 | disposition home or self-care (01) ==
LOC: ED 16:48
DX: L03.116 Cellulitis of left lower limb (principal)
CPT/HCPCS: 99283

== ENCOUNTER 2020-04-03 11:45 | Observation (INO) | payer OTHER ==
[~2020-04-03] VITALS: Ht 175.3 cm; Wt 75.3 kg
--- OUTSIDE RECORDS SUMMARY | ~2020-04-03 | XMS | Encounter Summary ---
Demographics + + + | Address | [address] | | | [place] [address] | + + + | Home Phone | | + + + | Preferred Language | Unknown | + + + | Marital Status | | + + + | Adventist Affiliation | Unknown | + + + | Race | Unknown | + + + | Ethnic Group | Unknown | + + + Author + + + | Author | [facility] | | | and [place] | + + + | Organization | [facility] | | | and [place] [...] Team Providers + +------+ + | Care Junior Bookkeeper Name | Role | Phone | + +------+ + | Libra Kimble | PCP | | | PA-C | | | + +------+ + Reason for Visit + + + | Reason | Comments | + + + | Urinary Pain | | + + + Encounter Details +--------+ + + + + | Date | Type | Department | Care Team | Description | +--------+ + + + + | // | Emergency | [facility] | [place], | Urinary tract | | 2017 | | [facility] | George Alva MD [address] | infection with | | | | CENTER [address] | [address] [place] | hematuria, site | | | | [place], [place] | [place] [address] | unspecified (Primary | | | | [address] | [phone] | Dx) | | | | [phone] | | | +--------+ + + + + Social History + +-------+ +--------+------+ | Tobacco Use | Types | Packs/Day | Years | Date | | | | | Used | | + +-------+ +--------+------+ | Never Smoker | | | | | + +-------+ +--------+------+ + + +---------+ + | Alcohol Use | Drinks/Week | oz/Week | Comments | + + +---------+ + | No | | | | + + +---------+ + + + + | Sex Assigned at [...] + + documented as of this encounter Last Filed Vital Signs + + + + + | Vital Sign | Reading | Time Taken | Comments | + + + + + | Blood Pressure | 152/96 | 05/07/2017 10:42 AM | | | | | PDT | | + + + + + | Pulse | 114 | 05/07/2017 10:42 AM | | | | | PDT | | + + + + + | Temperature | 36.6 C (97.8 F) | 05/07/2017 10:33 AM | | | | | PDT | | + + + + + | Respiratory Rate | 16 | 05/07/2017 10:33 AM | | | | | PDT | | + + + + + | Oxygen Saturation | 98% | 05/07/2017 10:42 AM | | | | | PDT | | + + + + + | Inhaled Oxygen | - | - | | | Concentration | | | | + + + + + | Weight | 69.4 kg (153 lb) | 05/07/2017 10:33 AM | | | | | PDT | | + + + + + | Height | 175.3 cm (5' 9") | 05/07/2017 10:33 AM | | | | | PDT | | + + + + + | Body Mass Index | 22.59 | 05/07/2017 10:33 AM | | | | | PDT | | + + + + + documented in this encounter Discharge Instructions Instructions George Stern MD - 05/07/2017Start antibiotics as prescribed. Use Pyridium and ibuprofen for pain control. Drink plenty of fluids. Return for worsening symptoms or any other concerns AttachmentsThe following attachments cannot be sent through Care Everywhere.URINARY TRACT I NFECTIONS IN WOMEN ([facility])documented in this encounter Medications at Time of Discharge + + + +---------+ + + | Medication | Sig | Dispensed | Refills | Start | End Date | | | | | | Date | | + + + +---------+ + + | phenazopyridine | Take 1 tablet by | 9 | 0 | 05/07/20 | 07/11/201 | | (PYRIDIUM) 200 mg | mouth 3 times daily | tablet | | 17 | 7 | | tablet | as needed for Pain | | | | | | | for up to 3 days. | | | | | + + + +---------+ + + | | Take 1 tablet by | 20 | 0 | 05/07/20 | | | sulfamethoxazole-tri | mouth 2 times daily | tablet | | 17 | 7 | | methoprim (BACTRIM | for 5 days. | | | | | | DS) 800-160 mg per | | | | | | | tablet | | | | | | + + + +---------+ + + documented as of this encounter Plan of Treatment Not on filedocumented as of this encounter Procedures + +--------+ + + + | Procedure Name | Priori | Date/Time | Associated Diagnosis | Comments | | | ty | | | | + +--------+ + + + | URINALYSIS WITH | STAT | 05/07/2017 | | Results for this | | MICROSCOPIC WITH | | 10:42 AM | | procedure are in the | | CULTURE IF INDICATED | | PDT | | results section. | + +--------+ + + + | CULTURE, URINE | STAT | 05/07/2017 | | Results for this | | | | 10:42 AM | | procedure are in the | | | | PDT | | results section. | + +--------+ + + + documented in this encounter Results Culture, Urine (05/07/2017 10:42 AM PDT) + + + + + + | Component | Value | Ref Range | Performed | Pathologist | | | | | At | Signature | + + + + + + | Culture | No Growth | | [facility] | | | | | | [facility] | | | | | | MEDICAL | | | | | | CENTER - | | | | | | LABORATORY | | + + + + + + + + | Specimen | + + | Urine - Urine | | specimen obtained by | | clean catch | | procedure (specimen) | + + + + + + + | Performing | Address | City/State/Zipcode | Phone Number | | Organization | | | | + + + + + | [facility] | [address] | [place] | [phone] | | [facility] | | [address] | | | - LABORATORY | | | | + + + + + Urinalysis with Microscopic with Culture if Indicated (05/07/2017 10:42 AM PDT) + + + + + + | Component | Value | Ref Range | Performed | Pathologist | | | | | At | Signature | + + + + + + | Color, | Brown (A)Comment: This | Light Yellow, | [facility] | | | Urine | is a corrected result. | Yellow, Straw | [facility] | | | | Previous result was | | MEDICAL | | | | Yellow on 05/07/2017 at | | CENTER - | | | | 1110 PDT | | LABORATORY | | + + + + + + | Clarity | Turbid (A) | Clear | [facility] | | | | | | [facility] | | | | | | MEDICAL | | | | | | CENTER - | | | | | | LABORATORY | | + + + + + + | pH, Urine | 5.0 | 5.0 - 8.0 | [facility] | | | | | | [facility] | | | | | | MEDICAL | | | | | | CENTER - | | | | | | LABORATORY | | + + + + + + | Specific | 1.026 | 1.001 - 1.030 | [facility] | | | [place], | | | [facility] | | | Urine | | | MEDICAL | | | | | | CENTER - | | | | | | LABORATORY | | + + + + + + | Protein, | 100 mg/dL (A) | Negative | [facility] | | | Urine | | | [facility] | | | | | | MEDICAL | | | | | | CENTER - | | | | | | LABORATORY | | + + + + + + | Blood, | Large (A) | Negative | [facility] | | | Urine | | | [facility] | | | | | | MEDICAL | | | | | | CENTER - | | | | | | LABORATORY | | + + + + + + | Glucose, | NegativeComment: This is | Negative | [facility] | | | Urine | a corrected result. | | [facility] | | | | Previous result was 50 | | MEDICAL | | | | mg/dL on 05/07/2017 at | | CENTER - | | | | 1110 PDT | | LABORATORY | | + + + + + + | Ketones, | Trace (A) | Negative | [facility] | | | Urine | | | [facility] | | | | | | MEDICAL | | | | | | CENTER - | | | | | | LABORATORY | | + + + + + + | Bilirubin, | Negative | Negative | [facility] | | | Urine | | | [facility] | | | | | | MEDICAL | | | | | | CENTER - | | | | | | LABORATORY | | + + + + + + | Nitrite, | Positive (A) | Negative | [facility] | | | Urine | | | [facility] | | | | | | MEDICAL | | | | | | CENTER - | | | | | | LABORATORY | | + + + + + + | Leukocyte | Trace (A)Comment: This | Negative | [facility] | | | Esterase, | is a corrected result. | | [facility] | | | Urine | Previous result was | | MEDICAL | | | | Negative on 05/07/2017 at | | CENTER - | | | | 1110 PDT | | LABORATORY | | + + + + + + | Urobilinoge | Negative | 0.2 mg/dL, 1.0 | [facility] | | | n, Urine | | mg/dL, Negative | [facility] | | | | | | MEDICAL | | | | | | CENTER - | | | | | | LABORATORY | | + + + + + + | White Blood | 50-100 (A) | 0 - 2 /HPF | [facility] | | | Cells, | | | [facility] | | | Urine | | | MEDICAL | | | | | | CENTER - | | | | | | LABORATORY | | + + + + + + | Red Blood | >100 (A) | 0 - 2 /HPF | [facility] | | | Cells, | | | [facility] | | | Urine | | | MEDICAL | | | | | | CENTER - | | | | | | LABORATORY | | + + + + + + | Squamous | 2-5 (A) | 0 - 2 /LPF | [facility] | | | Epithelial | | | [facility] | | | Cells, | | | MEDICAL | | | Urine | | | CENTER - | | | | | | LABORATORY | | + + + + + + | Bacteria, | 3+ (A) | Negative /HPF | [facility] | | | Urine | | | [facility] | | | | | | MEDICAL | | | | | | CENTER - | | | | | | LABORATORY | | + + + + + + + + | Specimen | + + | Urine - Urine | | specimen obtained by | | clean catch | | procedure (specimen) | + + + + + + + | Performing | Address | City/State/Zipcode | Phone Number | | Organization | | | | + + + + + | [facility] | [address] | [place] | [phone] | | [facility] | | [address] | | | - LABORATORY | | | | + + + + + documented in this encounter Visit Diagnoses + + | Diagnosis | + + | Urinary tract infection with hematuria, site unspecified - Primary | + + documented in this encounter Administered Medications + +--------+ +--------+------+------+ | Medication Order | MAR | Action | Dose | Rate | Site | | | Action | Date | | | | + +--------+ +--------+------+------+ | phenazopyridine (PYRIDIUM) | Given | 05/07/20 | 200 mg | | | | tablet 200 mg 200 mg, Oral, | | 17 11:36 | | | | | ONCE, 05/07/17 at 1130, For 1 | | AM PDT | | | | | dose | | | | | | + +--------+ +--------+------+------+ +---+---+ | | | +---+---+ + +-------+ + +---+---+ | sulfamethoxazole-trimethoprim | Given | 05/07/20 | 1 tablet | | | | (BACTRIM DS) 800-160 mg per | | 17 11:36 | | | | | tablet 1 tablet 1 tablet, Oral, | | AM PDT | | | | | ONCE, 05/07/17 at 1130, For 1 | | | | | | | dose, Indications: Infection | | | | | | + +-------+ + +---+---+ +---+---+ | | | +---+---+ documented in this encounter
--- OUTSIDE RECORDS SUMMARY | ~2020-04-03 | XMS | Encounter Summary ---
Demographics + + + | Address | [address] | | | [place] [address] | + + + | Home Phone | | + + + | Preferred Language | Unknown | + + + | Marital Status | | + + + | Orthodox Affiliation | Unknown | + + + | Race | Unknown | + + + | Ethnic Group | Unknown | + + + Author + + + | Author | [facility] | | | and [place] | + + + | Organization | [facility] | | | and [place] | [...] Team Providers + +------+ + | Care Head Doffer Name | Role | Phone | + [...] | | | | CENTER [address] | [address] [place] | hematuria, site | | | | [place], [place] | [place] [address] | unspecified (Primary | | | | [address] | [phone] | Dx) | | | | [phone] | | | +--------+ + + + [...] Care Everywhere.URINARY TRACT I NFECTIONS IN WOMEN ([place])documented in this encounter Medications at Time of [...] [address] | [place] | [phone] | | [facility] | | [address] | | | - LABORATORY | | [...] - 1.030 | [facility] | | | [place], | | | [facility] | [...] [address] | [place] | [phone] | | [facility] | | [address] | | | - LABORATORY | | [...]
--- OUTSIDE RECORDS SUMMARY | ~2020-04-03 | XMS | Clinical Summary ---
Demographics + + + | Address | [address] | | | [place] [address] | + + + | Home Phone | | + + + | Preferred Language | Unknown | + + + | Marital Status | | + + + | Denominational Affiliation | Unknown | + + + | Race | Unknown | + + + | Ethnic Group | Unknown | + + + Author + + + | Author | [facility] | | | and [place] | + + + | Organization | [facility] | | | and [place] [...] Team Providers + +------+ + | [facility] Name | Role | Phone | + +------+ + | Libra Kimble | PCP | | | PA-C | | | + +------+ + Allergies No Known Allergies Medications No known medications Active Problems Not on file Social History + +-------+ +--------+------+ | Tobacco [...] recent travel history available. | + + Last Filed Vital Signs + + + [...] | | + + + + + Plan of Treatment + + + + + | Health Maintenance | Due Date | Last Done | Comments | + + + + + | Vaccine: | | | | | Dtap/Tdap/Td (1 - | 2 | | | | Tdap) | | | | + + + + + | Cervical Cancer | | | | | Screening (Pap) | 2 | | | + + + + + | Vaccine: Influenza | | | | | (Season Ended) | 0 | | | + + + + + Results Not on filefrom Last 3 Months Insurance + +--------+ +--------+ +---------+--------+ | Payer | Benefi | Subscriber | Effect | Phone | Address | Type | | | t Plan | ID | abiodun | | | | | | / | | Dates | | | | | | Group | | | | | | + +--------+ +--------+ +---------+--------+ | [place] MEDICA | [id number] | 07/01/20 | [phone] | | Med[place] | | | [place] | | 16-Pre | 2 | | id | | | PLUS | | sent | | | | + +--------+ +--------+ +---------+--------+ + +--------+ +--------+ + + | Guarantor Name | Accoun | Relation to | Date | Phone | Billing Address | | | t Type | Patient | of | | | | | | | | | | + +--------+ +--------+ + + | Rupa Rogers | Person | Self [birth year] | [address] | | [place] | al/Fam | | 1990 | [phone] | [place] [address] | | | [place] | | | 4 (Home) | | + +--------+ +--------+ + + Advance Directives + + + + + | Type | Date Recorded | Patient | 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
--- OUTSIDE RECORDS SUMMARY | ~2020-04-03 | XMS | Clinical Summary ---
Demographics + + + | Address | [address] | | | [place] [address] | + + + | Home Phone | | + + + | Preferred Language | Unknown | + + + | Marital Status | | + + + | Scientologist Affiliation | Unknown | + + + | Race | Unknown | + + + | Ethnic Group | Unknown | + + + Author + + + | Author | [facility] | | | and [place] | + + + | Organization | [facility] | | | and [...] Team Providers + +------+ + | Care Hand Stamper Name | Role | Phone | + [...] +---------+--------+ | [place] | [place]ICA | [id number] | 07/01/20 | [phone] | | Medica [...] | 1990 | [phone] | [place] [address] | | | elena | | | 4 (Home) | | + +--------+ +--------+ + + Advance Directives + + + + + | Type | Date Recorded | Patient | 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
--- OUTSIDE RECORDS SUMMARY | ~2020-04-03 | XMS | Clinical Summary ---
Demographics + + + | Address | [address] | | | [place] [address] | + + + | Home Phone | | + + + | Preferred Language | Unknown | + + + | Marital Status | | + + + | Yazidism Affiliation | Unknown | + + + | Race | Unknown | + + + | Ethnic Group | Unknown | + + + Author + + + | Author | [facility] | | | and [place] | + + + | Organization | [facility] | | | and [place] [...] Team Providers + +------+ + | Care Assistant Paralegal Name | Role | Phone | + [...] +---------+--------+ | [place] | MEDICA | [id number] | 07/01/20 | [phone] | | Medica [...] | 1990 | [phone] | [place] [address] | | | elena | | | 4 (Home) | | + +--------+ +--------+ + + Advance Directives + + + + + | Type | Date Recorded | Patient | 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
--- OUTSIDE RECORDS SUMMARY | ~2020-04-03 | XMS | Encounter Summary ---
Demographics + + + | Address | [address] | | | [place] [address] | + + + | Home Phone | | + + + | Preferred Language | Unknown | + + + | Marital Status | | + + + | Hinduism Affiliation | Unknown | + + + | Race | Unknown | + + + | Ethnic Group | Unknown | + + + Author + + + | Author | [facility] | | | and [place] | + + + | Organization | [facility] | | | and [place] | [...] Team Providers + +------+ + | Care Police Cadet Name | Role | Phone | + +------+ + PCP | Unavailable | + +------+ + Encounter Details +--------+ + + + + | Date | Type | Department | Care Team | Description | +--------+ + + + + | 05/10/ | Hospital | [facility] | Abbey Morin | Thrombocytopenia | | 2011 - | Encounter | [facility] | [place] [id number] | ([facility], [facility]IN [facility]); | | | | CLINICAL DECISION | [address] | Hyperbilirubinemia; | | 05/14/ | | [address] | [place], [place] | Petechiae or | | 2011 | | [place] | [address] | ecchymoses; | | | | [address] | [phone] | Thrombocytopenia, | | | | [phone] | | unspecified (HCC); | | | [...] Summaries by Brendan Sahu MD at 05/14/12 1023 Author: Brendan Sahu MD Service: (none) Author Type: Physician Filed: 05/14/12 1832 Date of Service: 05/14/121134 Status: Signed [employer]: Brendan Sahu MD (Physician) [facility] Service: Hospitalist Discharge Summary Date of [...] recognition system. The possibility of "sound alike" building attendant errors, addition and/or deletions may occur. 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 About 10 pm last night s [...] ly. She went to the ED of [facility] in [place], [place]. She was found out to have severe thrombocytopenia with a platelet count of 12,000 transferred here and admitted f or treatment and closer monitoring of her bleeding as she was a high risk for morbidity with the bleeding and low platelets. CT head according to the ED notes revealed no hemorrhage. P atient is adopted so does not know [facility] HOSPITAL COURSE: Patient was admitted, started on 70 mg of prednisone orally daily, Hem/Onc consulted and pl atelets monitored daily, had USG of abdomen and pelvis because of initial elevated liver enz ymes and vaginal bleeding which both improved rapidly after starting the prednisone and plat [place] [id number] by the day on discharge no new bleeding or b ruising noted therefore was discharged on 05/14/12. During work uphad positive OPAL and 2.0 S SB, I did discuss patient with our only Damage Appraiser in [facility] Dr. Arrieta over the phon e and he suggested repeating OPAL and SSB once off the prednisone and if still elevated or if patietn exhibits physical signs of lupus or autoimmune disease like Sjogrens which the liana ent did not show during this admission, PCP or Hem/Onc should arrange referral to [facility] and he would be happy to see [...] elodia Call for: Scheduling Instructions: Go to [facility] if with increased bruising or bleeding Follow up: PCP of her choice which patietn and mom will make appointments for. in 1 week Sahra Linares MD [address] [facility] [address] On May 17 or after platelet count done on 05/16/12 with report to be sent to Dr. David merino office. José Miguel Velarde MD [address] [facility] [address] If needed as discussed above Medication List [...] are the prescriptions that you need to grape picker. You may get these medications from any [...] from the original. Progress Notes by Queenie Delaney RN at 05/14/12 1301 Author: Queenie Delaney RN Service: (none) Author Type: Registered Nurse Filed: 05/14/12 1737 Date of Service: 05/14/12 1305 Status: Signed [employer]: Queenie Delaney RN (Registered Nurse) D/c instructions and Rx's given and explained to pt and her mother, both state understandin g. Pt escorted via wheelchair to private vehicle. Pt left in stable condition. onver ghassan Transaction, Provider Unknown - 05/14/2012 7:22 AM PDT Progress Notes by Jyothi Bailey RN at 05/14/12 5990 Author: Jyothi Bailey RN Service: (none) Author Type: Registered Nurse Filed: 05/14/12722 Date of Service: 05/14/12721 Status: Signed [employer]: Jyothi Bailey RN (Registered Nurse) No change [...] 05/13/122221 Date of Service: 05/13/122199 Status: Signed [employer]: Jyothi Bailey RN (Registered Nurse) Patient stated she did not sleep well last night, Ambien offered and patient accepted to he lp sleep tonight. 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 onver ghassan Transaction, Provider Unknown - 05/13/2012 6:28 PM PDT Progress Notes by Queenie Delaney RN at 05/13/121827 Author: Queenie Delaney RN Service: (none) Author Type: Registered Nurse Filed: 05/13/121829 Date of Service: 05/13/121827 Status: Signed [employer]: Queenie Delaney RN (Registered Nurse) Pt in [...] Service: (none) Author Type: Physician Filed: 05/13/12 9283 Date of Service: 05/13/12 1226 Status: Signed [employer]: Sahra Linares MD (Physician) [facility] Service: Hematology/Oncology Progress Note Hospital Day: LOS: 3 days Post-Op Day: * No surgery found * SUBJECTIVE Patient Summary: Miss Mena is a 21-year-old female who was admitted to [facility] on May 10, 2012, with complaints [...] 70.6 kg (155 lb 10.3 oz) (05/12 7496) Skin: Warm, dry and intact with very [...] A 23-year-old female who was admitted to [facility] with a low platelet count, who [...] Date of Service: 05/13/12 0755 Status: Signed [employer]: Brendan Sahu MD (Physician) [facility] Service: Hospitalist Progress Note Hospital Day: LOS: 3 days Post-Op Day: * No surgery found * SUBJECTIVE The patient is a 21 y.o. female with no significant past medical history who presents with red dots and bruises all over her body that she initially noted about a week prior to admiss [facility]. She did not have any trauma or fall recently. Yesterday last night before she went to [facility] she noticed that red dots increased in number all over her legs. 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 About 10 pm last night she [...] . She went to the ED of [facility] in [place], [place]. She was found out to sharma [...] and management as well as Computerized Physician Hand Roller. Disposition: Inpatient Code Status: Full Code Brendan Sahu MD 05/13/2012 onversion Transaction, Provider Unknown - 05/13/2012 7:41 AM PDTFormatting of this note might be diff erent from the original. Progress Notes by Jackie Mancia RN at 05/13/12740 Author: Jackie Mancia RN Service: (none) Author Type: Registered Nurse Filed: 05/13/12741 Date of Service: 05/13/12740 Status: Signed [employer]: Jackie Mancia RN (Registered Nurse) Pt had a good night without any complaints. States she is hoping to go home today. Will con tinue to monitor. onver ghassan Transaction, Provider Unknown - 05/12/2012 4:35 PM PDT Progress Notes by Queenie Delaney RN at 05/12/12 163 Author: Queenie Delaney RN Service: (none) Author Type: Registered Nurse Filed: 05/12/125 Date of Service: 05/12/121634 Status: Signed [employer]: Queenie Delaney RN (Registered Nurse) Pt in room visiting with her S.O. Denies needs at this time. Vss, will continue to monitor. andy Sharma ARNP - 05/12/2012 9:37 AM PDT Progress Notes by JESSY Hannah at 05/12/1237 Author: JESSY Hannah Service: (none) Author Type: Advanced Registered Nurse Janes ctitioner Filed: 05/12/12 0949 Date of Service: 05/12/12936 Status: Signed [employer]: JESSY Hannah (Advanced Registered Nurse [place]) Cosigner: Sahra Linares MD at 05/13/12 1221 [facility] Service: Hematology/Oncology Progress Note Hospital Day: [...] 1150 Date of Service: 05/12/12856 Status: Signed [employer]: Brendan Sauh MD (Physician) [facility] Service: Hospitalist Progress Note Hospital Day: LOS: 2 days Post-Op Day: * No surgery found * SUBJECTIVE The patient is a 21 y.o. female with no significant past medical history who presents with red dots and bruises all over her body that she initially noted about a week prior to admiss [facility]. She did not have any trauma or fall recently. Yesterday last night before she went to [facility] she noticed that red dots increased in number all over her legs. 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 About 10 pm last night she [...] . She went to the ED of [facility] in [place], [place]. She was found out to sharma [...] Code Status: Full Code Brendan Sahu MD 05/12/2012 onversion Transaction, Provider Unknown - 05/12/2012 6:47 AM PDTFormatting of this note might be diff erent from the original. Progress Notes by Jackie Mancia RN at 05/12/12646 Author: Jackie Mancia RN Service: (none) Author Type: Registered Nurse Filed: 05/12/1248 Date of Service: 05/12/12646 Status: Signed [employer]: Jackie Mancia RN (Registered Nurse) Pt slept well overnight. States despite having noticed a couple of new bruises on her feet that she doesn't have any new symptoms. Pt reports that her menses seems much home care scheduler now. H as not voided overnight but states that she never urinates during the night. No further carrington ges in assessment will continue to monitor. onver ghassan Transaction, Provider Unknown - 05/11/2012 5:59 PM PDT Progress Notes by Queenie Delaney RN at 05/11/121758 Author: Queenie Delaney RN Service: (none) Author Type: Registered Nurse Filed: 05/11/12 1800 Date of Service: 05/11/121758 Status: Signed [employer]: Queenie Delaney RN (Registered Nurse) Pt in [...] 1226 Date of Service: 05/11/121324 Status: Signed [employer]: Sahra Linares MD (Physician) [facility] Service: Hematology/Oncology Progress Note Hospital Day: LOS: 1 day Post-Op Day: * No surgery found * SUBJECTIVE Patient Summary: Miss Mena is a 21-year-old female who was admitted to [facility] on May 10, 2012, with complaints [...] A 23-year-old female who was admitted to [facility] with a low platelet count, who [...] The patient should be evaluated by a human resources trainer if she has lupus. 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 Abo wy 10 pm last night she noted bruises [...] recently. She went to the ED of [facility] in [place], [place]. She was found out to have [...] 05/11/1234 Date of Service: 05/11/12532 Status: Signed [employer]: Jackie Mancia RN (Registered Nurse) Pt without [...] 05/10/121704 Date of Service: 05/10/121704 Status: Signed [employer]: Rena Santacruz RPH (Pharmacist) Clinical Pharmacy note: [...] Date of Service: 05/10/12 120 Status: Signed [employer]: Abbey Morin MD (Physician) Dr. Laureano discussed case with me. He stated that Dr. Linares recommended giving prednisone 1 mg/kg/day. We will start that for her. ABBEY MORIN MD 05/10/2012 12:07 PM Jing Conner MSW - 05/10/2012 10:59 AM PDTFormatting of this note might be different from the ella ginal. Progress Notes by CY Aguayo at 05/10/12 6168 Author: CY Aguayo Service: (none) Author Type: Mobile Solutions Architect Filed: 05/10/12 1101 Date of Service: 05/10/12 1058 Status: Signed [employer]: CY Aguayo (Mobile Solutions Architect) PT lives in a private residence in [place], [place] with her SO and their Son. Pt has her Aun t & Uncle at the bs with her at this time. Pt is independent with ADLs, uses do DME, never used HH. Pt does not have a POA. Pt reports that her Father will be transporting her home and caring for her post DC as needed. Pt lives in [place], [place] and will need assistance raghav eduardo with a PCP. No other needs identified at this time. CRM to follow as clinical course progresses. Arabella [facility] CM Hand Binder Stripper documented in this encounter Plan of Treatment [...] possibility of "sound | | | alike" building attendant errors, addition and/or deletions may occur. If [...] voice recognition system.The possibility of "sound alike" building attendant errors, | | addition and/or deletions may [...] system. | |The possibility of "sound alike" building attendant errors, addition and/or deletions may occur. If [...] recognition system. The possibility of "sound alike" building attendant | | | errors, addition and/or deletions [...] | | system.The possibility of "sound alike" building attendant errors, addition and/or deletions | | may [...] system. | |The possibility of "sound alike" building attendant errors, addition and/or deletions may occur. If [...]
--- OUTSIDE RECORDS SUMMARY | ~2020-04-03 | XMS | Encounter Summary ---
Demographics + + + | Address | [address] | | | [place] [address] | + + + | Home Phone | | + + + | Preferred Language | Unknown | + + + | Marital Status | | + + + | Yarsanism Affiliation | Unknown | + + + | Race | Unknown | + + + | Ethnic Group | Unknown | + + + Author + + + | Author | [facility] | | | and [place] | + + + | Organization | [facility] | | | and [place] [...] Team Providers + +------+ + | Care Drain Tiler Name | Role | Phone | + +------+ + PCP | Unavailable | + +------+ + Encounter Details +--------+ + + + + | Date | Type | Department | Care Team | Description | +--------+ + + + + | 05/10/ | Hospital | [facility] | Abbey Morin | Thrombocytopenia | | 2011 - | Encounter | [facility] | [place] [id number] | ([facility]); | | | | CLINICAL DECISION | [address] | Hyperbilirubinemia; | | 05/14/ | | [address] | [place], [place] | Petechiae or | | 2011 | | [place] | [address] | ecchymoses; | | | | [address] | [phone] | Thrombocytopenia, | | | | [phone] | | unspecified (HCC); | | | [...] Summaries by Brendan Sahu MD at 05/14/12 6422 Author: Brendan Sahu MD Service: (none) Author Type: Physician Filed: 05/14/12 1832 Date of Service: 05/14/121134 Status: Signed Product Inspection Supervisor: Brendan Sahu MD (Physician) [facility] Service: Hospitalist Discharge Summary Date of [...] recognition system. The possibility of "sound alike" wood gouger errors, addition and/or deletions may occur. 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 About 10 pm last night s [...] ly. She went to the ED of [facility] in [place], [place]. She was found out to have severe thrombocytopenia with a platelet count of 12,000 transferred here and admitted f or treatment and closer monitoring of her bleeding as she was a high risk for morbidity with the bleeding and low platelets. CT head according to the ED notes revealed no hemorrhage. P atient is adopted so does not know [facility] HOSPITAL COURSE: Patient was admitted, started on 70 mg of prednisone orally daily, Hem/Onc consulted and pl atelets monitored daily, had USG of abdomen and pelvis because of initial elevated liver enz ymes and vaginal bleeding which both improved rapidly after starting the prednisone and plat [place] [id number] by the day on discharge no new bleeding or b ruising noted therefore was discharged on 05/14/12. During work uphad positive OPAL and 2.0 S SB, I did discuss patient with our only Planting Supervisor in [facility] Dr. Arireta over the phon e and he suggested repeating OPAL and SSB once off the prednisone and if still elevated or if patietn exhibits physical signs of lupus or autoimmune disease like Sjogrens which the liana ent did not show during this admission, PCP or Hem/Onc should arrange referral to [facility] and he would be [...] elodia Call for: Scheduling Instructions: Go to [facility] if with increased bruising or bleeding Follow up: PCP of her choice which patietn and mom will make appointments for. in 1 week Sahra Linares MD [address] [facility] [address] On May 17 or after platelet count done on 05/16/12 with report to be sent to Dr. David merino office. José Miguel Velarde MD [address] [facility] [address] If needed as discussed above Medication List [...] are the prescriptions that you need to sampler pickup. You may get these medications from any [...] Notes by Queenie Delaney RN at 05/14/12 1304 Author: Queenie Delaney RN Service: (none) Author Type: Registered Nurse Filed: 05/14/12 5949 Date of Service: 05/14/12 1305 Status: Signed Product Inspection Supervisor: Queenie Delaney RN (Registered Nurse) D/c instructions and Rx's given and explained to pt and her mother, both state understandin g. Pt escorted via wheelchair to private vehicle. Pt left in stable condition. onver ghassan Transaction, Provider Unknown - 05/14/2012 7:22 AM PDT Progress Notes by Jyothi Bailey RN at 05/14/12 6487 Author: Jyothi Bailey RN Service: (none) Author Type: Registered Nurse Filed: 05/14/12722 Date of Service: 05/14/12721 Status: Signed Product Inspection Supervisor: Jyothi Bailey RN (Registered Nurse) No change [...] 05/13/122221 Date of Service: 05/13/122199 Status: Signed Product Inspection Supervisor: Jyothi Bailey RN (Registered Nurse) Patient stated she did not sleep well last night, Ambien offered and patient accepted to he lp sleep tonight. 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 onver ghassan Transaction, Provider Unknown - 05/13/2012 6:28 PM PDT Progress Notes by Queenie Delaney RN at 05/13/121827 Author: Queenie Delaney RN Service: (none) Author Type: Registered Nurse Filed: 05/13/121829 Date of Service: 05/13/121827 Status: Signed Product Inspection Supervisor: Queenie Delaney RN (Registered Nurse) Pt in [...] Service: (none) Author Type: Physician Filed: 05/13/12 8126 Date of Service: 05/13/12 1226 Status: Signed Product Inspection Supervisor: Sahra Linares MD (Physician) [facility] Service: Hematology/Oncology Progress Note Hospital Day: LOS: 3 days Post-Op Day: * No surgery found * SUBJECTIVE Patient Summary: Miss Mena is a 21-year-old female who was admitted to [facility] on May 10, 2012, with complaints [...] 70.6 kg (155 lb 10.3 oz) (05/12 5076) Skin: Warm, dry and intact with very [...] A 23-year-old female who was admitted to [facility] with a low platelet count, who [...] Date of Service: 05/13/12 0755 Status: Signed Product Inspection Supervisor: Brendan Sahu MD (Physician) [facility] Service: Hospitalist Progress Note Hospital Day: LOS: 3 days Post-Op Day: * No surgery found * SUBJECTIVE The patient is a 21 y.o. female with no significant past medical history who presents with red dots and bruises all over her body that she initially noted about a week prior to admiss [facility]. She did not have any trauma or fall recently. Yesterday last night before she went to [facility] she noticed that red dots increased in number all over her legs. 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 About 10 pm last night she [...] . She went to the ED of [facility] in [place], [place]. 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 Disposition: Inpatient Code Status: Full Code Brendan Sahu MD 05/13/2012 onversion Transaction, Provider Unknown - 05/13/2012 7:41 AM PDTFormatting of this note might be diff erent from the original. Progress Notes by Jackie Mancia RN at 05/13/12740 Author: Jackie Mancia RN Service: (none) Author Type: Registered Nurse Filed: 05/13/12741 Date of Service: 05/13/12740 Status: Signed Product Inspection Supervisor: Jackie Mancia RN (Registered Nurse) Pt had a good night without any complaints. States she is hoping to go home today. Will con tinue to monitor. onver ghassan Transaction, Provider Unknown - 05/12/2012 4:35 PM PDT Progress Notes by Queenie Delaney RN at 05/12/12 163 Author: Queenie Delaney RN Service: (none) Author Type: Registered Nurse Filed: 05/12/125 Date of Service: 05/12/121634 Status: Signed Product Inspection Supervisor: Queenie Delaney RN (Registered Nurse) Pt in room visiting with her S.O. Denies needs at this time. Vss, will continue to monitor. andy Sharma ARNP - 05/12/2012 9:37 AM PDT Progress Notes by JESSY Hannah at 05/12/1237 Author: JESSY Hannah Service: (none) Author Type: Advanced Registered Nurse Janes ctitioner Filed: 05/12/12 0949 Date of Service: 05/12/12936 Status: Signed Product Inspection Supervisor: JESSY Hannah (Advanced Registered Nurse [place]) Cosigner: Sahra Linares MD at 05/13/12 1221 [facility] Service: Hematology/Oncology Progress Note Hospital Day: [...] s plenomegaly. Code Status: Full Code SANDY CANOEJSSY 05/12/2012 uis Alberto, Brendan Benito MD - 05/12/2012 8:57 AM PDT Progress Notes by Brendan Sahu MD at 05/12/12 0857 Author: Brendan Sahu MD Service: (none) Author Type: Physician Filed: 05/12/12 1150 Date of Service: 05/12/12856 Status: Signed Product Inspection Supervisor: Brendan Sahu MD (Physician) [facility] Service: Hospitalist Progress Note Hospital Day: LOS: 2 days Post-Op Day: * No surgery found * SUBJECTIVE The patient is a 21 y.o. female with no significant past medical history who presents with red dots and bruises all over her body that she initially noted about a week prior to admiss [facility]. She did not have any trauma or fall recently. Yesterday last night before she went to [facility] she noticed that red dots increased in number all over her legs. 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 About 10 pm last night she [...] . She went to the ED of [facility] in [place], [place]. She was found out to sharma [...] 05/12/1248 Date of Service: 05/12/12646 Status: Signed Product Inspection Supervisor: Jackie Mancia RN (Registered Nurse) Pt slept well overnight. States despite having noticed a couple of new bruises on her feet that she doesn't have any new symptoms. 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 H as not voided overnight but states that she never urinates during the night. No further carrington ges in assessment will continue to monitor. onver ghassan Transaction, Provider Unknown - 05/11/2012 5:59 PM PDT Progress Notes by Queenie Delaney RN at 05/11/121758 Author: Queenie Delaney RN Service: (none) Author Type: Registered Nurse Filed: 05/11/12 1800 Date of Service: 05/11/121758 Status: Signed Product Inspection Supervisor: Queenie Delaney RN (Registered Nurse) Pt in [...] 1226 Date of Service: 05/11/121324 Status: Signed Product Inspection Supervisor: Sahra Linares MD (Physician) [facility] Service: Hematology/Oncology Progress Note Hospital Day: LOS: 1 day Post-Op Day: * No surgery found * SUBJECTIVE Patient Summary: Miss Mena is a 21-year-old female who was admitted to [facility] on May 10, 2012, with complaints [...] A 23-year-old female who was admitted to [facility] with a low platelet count, who [...] The patient should be evaluated by a speeder operator if she has lupus. 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 Abo ak 10 pm last night [...] recently. She went to the ED of [facility] in [place], [place]. She was found out to have [...] 05/11/1234 Date of Service: 05/11/12532 Status: Signed Product Inspection Supervisor: Jackie Mancia RN (Registered Nurse) Pt without [...] 05/10/121704 Date of Service: 05/10/121704 Status: Signed Product Inspection Supervisor: Rena Santacruz RPH (Pharmacist) Clinical Pharmacy note: [...] Date of Service: 05/10/12 120 Status: Signed Product Inspection Supervisor: Abbey Morin MD (Physician) Dr. Laureano discussed case with me. He stated that Dr. Linares recommended giving prednisone 1 mg/kg/day. We will start that for her. ABBEY MORIN MD 05/10/2012 12:07 PM Jing Conner MSW - 05/10/2012 10:59 AM PDTFormatting of this note might be different from the ella ginal. Progress Notes by CY Aguayo at 05/10/12 6234 Author: CY Aguayo Service: (none) Author Type: Corporate Representative Filed: 05/10/12 1101 Date of Service: 05/10/12 1058 Status: Signed Product Inspection Supervisor: CY Aguayo (Corporate Representative) PT lives in a private residence in [place], [place] with her SO and their Son. Pt has her Aun t & Uncle at the bs with her at this time. Pt is independent with ADLs, uses do DME, never used HH. Pt does not have a POA. Pt reports that her Father will be transporting her home and caring for her post DC as needed. Pt lives in [place], [place] and will need assistance raghav eduardo with a PCP. No other needs identified at this time. CRM to follow as clinical course progresses. Arabella [facility] CM Wilton Weaver documented in this encounter Plan of Treatment [...] possibility of "sound | | | alike" wood gouger errors, addition and/or deletions may occur. If [...] voice recognition system.The possibility of "sound alike" wood gouger errors, | | addition and/or deletions may [...] system. | |The possibility of "sound alike" wood gouger errors, addition and/or deletions may occur. If [...] recognition system. The possibility of "sound alike" wood gouger | | | errors, addition and/or deletions [...] | | system.The possibility of "sound alike" wood gouger errors, addition and/or deletions | | may [...] system. | |The possibility of "sound alike" wood gouger errors, addition and/or deletions may occur. If [...]
--- OUTSIDE RECORDS SUMMARY | ~2020-04-03 | XMS | Encounter Summary ---
Demographics + + + | Address | [address] | | | [place] [address] | + + + | Home Phone | | + + + | Preferred Language | Unknown | + + + | Marital Status | | + + + | Latter Day Affiliation | Unknown | + + + | Race | Unknown | + + + | Ethnic Group | Unknown | + + + Author + + + | Author | [facility] | | | and [place] | + + + | Organization | [facility] | | | and [...] Team Providers + +------+ + | Care Ambulatory Technologist Name | Role | Phone | + +------+ + PCP | Unavailable | + +------+ + Encounter Details +--------+ + + + + | Date | Type | Department | Care Team | Description | +--------+ + + + + | 05/10/ | Hospital | [facility] | Abbey Morin | Thrombocytopenia | | 2011 - | Encounter | [facility] | [place] [address] | ([facility]); | | | | CLINICAL DECISION | [address] | Hyperbilirubinemia; | | 05/14/ | | [address] | [place], [place] | Petechiae or | | 2011 | | [place] | [address] | ecchymoses; | | | | [address] | [phone] | Thrombocytopenia, | | | | [phone] | | unspecified (HCC); | | | [...] Summaries by Brendan Sahu MD at 05/14/12 1972 Author: Brendan Sahu MD Service: (none) Author Type: Physician Filed: 05/14/12 1832 Date of Service: 05/14/121134 Status: Signed Literature Professor: Brendan Sahu MD (Physician) [facility] Service: Hospitalist Discharge Summary Date of Admission: [...] recognition system. The possibility of "sound alike" field producer errors, addition and/or deletions may occur. If [...] She went to work last night at [employer]. 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 About 10 pm last night s [...] went to the ED of [facility] in [place], [place]. She was found out to have severe thrombocytopenia with a platelet count of 12,000 transferred here and admitted f or treatment and closer monitoring of her bleeding as she was a high risk for morbidity with the bleeding and low platelets. CT head according to the ED notes revealed no hemorrhage. P atient is adopted so does not know [facility] COURSE: Patient was admitted, started on 70 mg of prednisone orally daily, Hem/Onc consulted and pl atelets monitored daily, had USG of abdomen and pelvis because of initial elevated liver enz ymes and vaginal bleeding which both improved rapidly after starting the prednisone and plat [place] [address] by the day on discharge no new bleeding or b ruising noted therefore was discharged on 05/14/12. During work uphad positive OPAL and 2.0 S SB, I did discuss patient with our only Coat Finisher in [facility] Dr. Arrieta over the phon e and he suggested repeating OPAL and SSB once off the prednisone and if still elevated or if patietn exhibits physical signs of lupus or autoimmune disease like Sjogrens which the liana ent did not show during this admission, PCP or Hem/Onc should arrange referral to [facility] and he would be [...] elodia Call for: Scheduling Instructions: Go to [facility] if with increased bruising or bleeding Follow up: PCP of her choice which patietn and mom will make appointments for. in 1 week Sahra Linares MD [address] [facility] [address] On May 17 or after platelet count done on 05/16/12 with report to be sent to Dr. David merino office. José Miguel Velarde MD [address] [facility] [address] If needed as discussed above Medication List [...] are the prescriptions that you need to burr picker. You may get these medications from [...] Notes by Queenie Delaney RN at 05/14/12 1300 Author: Queenie Delaney RN Service: (none) Author Type: Registered Nurse Filed: 05/14/12 6900 Date of Service: 05/14/12 1305 Status: Signed Literature Professor: Queenie Delaney RN (Registered Nurse) D/c instructions and Rx's given and explained to pt and her mother, both state understandin g. Pt escorted via wheelchair to private vehicle. Pt left in stable condition. onver ghassan Transaction, Provider Unknown - 05/14/2012 7:22 AM PDT Progress Notes by Jyothi Bailey RN at 05/14/12 3126 Author: Jyothi Bailey RN Service: (none) Author Type: Registered Nurse Filed: 05/14/12722 Date of Service: 05/14/12721 Status: Signed Literature Professor: Jyothi Bailey RN (Registered Nurse) No change [...] 05/13/122221 Date of Service: 05/13/122199 Status: Signed Literature Professor: Jyothi Bailey RN (Registered Nurse) Patient stated she did not sleep well last night, Ambien offered and patient accepted to he lp sleep tonight. 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 onver ghassan Transaction, Provider Unknown - 05/13/2012 6:28 PM PDT Progress Notes by Queenie Delaney RN at 05/13/121827 Author: Queenie Delaney RN Service: (none) Author Type: Registered Nurse Filed: 05/13/121829 Date of Service: 05/13/121827 Status: Signed Literature Professor: Queenie Delaney RN (Registered Nurse) Pt in [...] Service: (none) Author Type: Physician Filed: 05/13/12 8357 Date of Service: 05/13/12 1226 Status: Signed Literature Professor: Sahra Linares MD (Physician) [facility] Service: Hematology/Oncology Progress Note Hospital Day: LOS: 3 days Post-Op Day: * No surgery found * SUBJECTIVE Patient Summary: Miss Mena is a 21-year-old female who was admitted to [facility] on May 10, 2012, with complaints of [...] 70.6 kg (155 lb 10.3 oz) (05/12 3146) Skin: Warm, dry and intact with very [...] A 23-year-old female who was admitted to [facility] with a low platelet count, who thinks [...] Date of Service: 05/13/12 0755 Status: Signed Literature Professor: Brendan Sahu MD (Physician) [facility]: Hospitalist Progress Note Hospital Day: LOS: 3 days Post-Op Day: * No surgery found * SUBJECTIVE The patient is a 21 y.o. female with no significant past medical history who presents with red dots and bruises all over her body that she initially noted about a week prior to admiss [facility]. She did not have any trauma or fall recently. Yesterday last night before she went to [facility] she noticed that red dots increased in number all over her legs. She went to work last n ight at [employer]. 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 About 10 pm last night she [...] went to the ED of [facility] in [place], [place]. 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 Disposition: Inpatient Code Status: Full Code Brendan Sahu MD 05/13/2012 onversion Transaction, Provider Unknown - 05/13/2012 7:41 AM PDTFormatting of this note might be diff erent from the original. Progress Notes by Jackie Mancia RN at 05/13/12740 Author: Jackie Mancia RN Service: (none) Author Type: Registered Nurse Filed: 05/13/12741 Date of Service: 05/13/12740 Status: Signed Literature Professor: Jackie Mancia RN (Registered Nurse) Pt had a good night without any complaints. States she is hoping to go home today. Will con tinue to monitor. onver ghassan Transaction, Provider Unknown - 05/12/2012 4:35 PM PDT Progress Notes by Queenie Delaney RN at 05/12/12 163 Author: Queenie Delaney RN Service: (none) Author Type: Registered Nurse Filed: 05/12/125 Date of Service: 05/12/121634 Status: Signed Literature Professor: Queenie Delaney RN (Registered Nurse) Pt in room visiting with her S.O. Denies needs at this time. Vss, will continue to monitor. andy Sharma ARNP - 05/12/2012 9:37 AM PDT Progress Notes by JESSY Hannah at 05/12/1237 Author: JESSY Hannah Service: (none) Author Type: Advanced Registered Nurse Janes ctitioner Filed: 05/12/12 0949 Date of Service: 05/12/12936 Status: Signed Literature Professor: JESSY Hannah (Advanced Registered Nurse [place]) Cosigner: Sahra Linares MD at 05/13/12 1221 [facility]: Hematology/Oncology Progress Note Hospital Day: LOS: [...] 1150 Date of Service: 05/12/12856 Status: Signed Literature Professor: Brendan Sahu MD (Physician) [facility]: Hospitalist Progress Note Hospital Day: LOS: 2 days Post-Op Day: * No surgery found * SUBJECTIVE The patient is a 21 y.o. female with no significant past medical history who presents with red dots and bruises all over her body that she initially noted about a week prior to admiss [facility]. She did not have any trauma or fall recently. Yesterday last night before she went to [facility] she noticed that red dots increased in number all over her legs. She went to work last n ight at [employer]. 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 About 10 pm last night she [...] went to the ED of [facility] in [place], [place]. She was found out to sharma [...] 05/12/1248 Date of Service: 05/12/12646 Status: Signed Literature Professor: Jackie Mancia RN (Registered Nurse) Pt slept well overnight. States despite having noticed a couple of new bruises on her feet that she doesn't have any new symptoms. Pt reports that her menses seems much fresh meat grader now. H as not voided overnight but states that she never urinates during the night. No further carrington ges in assessment will continue to monitor. onver ghassan Transaction, Provider Unknown - 05/11/2012 5:59 PM PDT Progress Notes by Queenie Delaney RN at 05/11/121758 Author: Queenie Delaney RN Service: (none) Author Type: Registered Nurse Filed: 05/11/12 1800 Date of Service: 05/11/121758 Status: Signed Literature Professor: Queenie Delaney RN (Registered Nurse) Pt in [...] 1226 Date of Service: 05/11/121324 Status: Signed Literature Professor: Sahra Linares MD (Physician) [facility]: Hematology/Oncology Progress Note Hospital Day: LOS: 1 day Post-Op Day: * No surgery found * SUBJECTIVE Patient Summary: Miss Mena is a 21-year-old female who was admitted to [facility] on May 10, 2012, with complaints of [...] A 23-year-old female who was admitted to [facility] with a low platelet count, who thinks [...] The patient should be evaluated by a director of retail operations if she has lupus. Lupus can be [...] 1123 Date of Service: 05/11/121122 Status: Signed Literature Professor: Clementina Mcelroy RPH (Pharmacist) Crcl~125ml/min no medications [...] 05/11/121800 Date of Service: 05/11/12825 Status: Signed Literature Professor: Brendan Sahu MD (Physician) [facility]: Hospitalist Progress Note Hospital Day: LOS: [...] She went to work last night at [employer]. 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 Abo wv 10 pm last night she noted bruises [...] went to the ED of [facility] in [place], [place]. She was found out to have [...] 05/11/1234 Date of Service: 05/11/12532 Status: Signed Literature Professor: Jackie Mancia RN (Registered Nurse) Pt without [...] 05/10/121704 Date of Service: 05/10/121704 Status: Signed Literature Professor: Rena Santacruz RPH (Pharmacist) Clinical Pharmacy note: [...] Date of Service: 05/10/12 120 Status: Signed Literature Professor: Abbey Morin MD (Physician) Dr. Laureano discussed case with me. He stated that Dr. Linares recommended giving prednisone 1 mg/kg/day. We will start that for her. ABBEY MORIN MD 05/10/2012 12:07 PM Jing Conner MSW - 05/10/2012 10:59 AM PDTFormatting of this note might be different from the ella ginal. Progress Notes by CY Aguayo at 05/10/12 1675 Author: CY Aguayo Service: (none) Author Type: Roller Skate Assembler Filed: 05/10/12 1101 Date of Service: 05/10/12 1056 Status: Signed Literature Professor: CY Aguayo (Roller Skate Assembler) PT lives in a private residence in [place], [place] with her SO and their Son. Pt has her Aun t & Uncle at the bs with her at this time. Pt is independent with ADLs, uses do DME, never used HH. Pt does not have a POA. Pt reports that her Father will be transporting her home and caring for her post DC as needed. Pt lives in [place], [place] and will need assistance raghav eduardo with a PCP. No other needs identified at this time. CRM to follow as clinical course progresses. Arabella [facility] CM Lamp Inspector documented in this encounter Plan of Treatment [...] possibility of "sound | | | alike" field producer errors, addition and/or deletions may occur. If | | | there is any question about this report please contact the | | | originating radiologist. | | + + + + + | Procedure Note | + + | Justin, Rad Conversion - 06/23/2019 3:36 AM PDT RADHA Hyamn PORTVALERI PELVIS WITH | | ENDOVAGINAL05/12/2012 5:29 [...] voice recognition system.The possibility of "sound alike" field producer errors, | | addition and/or deletions may [...] system. | |The possibility of "sound alike" field producer errors, addition and/or deletions may occur. If [...] recognition system. The possibility of "sound alike" field producer | | | errors, addition and/or deletions [...] | | system.The possibility of "sound alike" field producer errors, addition and/or deletions | | may [...] system. | |The possibility of "sound alike" field producer errors, addition and/or deletions may occur. If [...]
--- OUTSIDE RECORDS SUMMARY | ~2020-04-03 | XMS | Encounter Summary ---
Demographics + + + | Address | [address] | | | [place] [address] | + + + | Home Phone | | + + + | Preferred Language | Unknown | + + + | Marital Status | | + + + | Anabaptist Affiliation | Unknown | + + + | Race | Unknown | + + + | Ethnic Group | Unknown | + + + Author + + + | Author | [facility] | | | and [place] | + + + | Organization | [facility] | | | and [place] [...] Team Providers + +------+ + | Care Painting And Coating Worker Name | Role | Phone | + [...] | | | | CENTER [address] | [address] [place] | hematuria, site | | | | [place], [place] | [place] [address] | unspecified (Primary | | | | [address] | [phone] | Dx) | | | | [phone] | | | +--------+ + + + [...] Care Everywhere.URINARY TRACT I NFECTIONS IN WOMEN (HONDURAN)documented in this encounter Medications at Time of [...] [address] | [place] | [phone] | | [facility] | | [address] | | | - LABORATORY | | [...] - 1.030 | [facility] | | | [place], | | | [facility] | [...] [address] | [place] | [phone] | | [facility] | | [address] | | | - LABORATORY | | [...]
[~2020-04-03 11:45] MED LIST changes: +DOXYCYCLINE HY100 MG PO; +LAMOTRIGINE25 MG PO; +VYVANSE60 MG PO
[2020-04-03] MEDS ORDERED: CLONIDINE HCL0.2 MG PO (12:17)
[2020-04-03] MEDS ORDERED: LEXAPRO20 MG PO (12:17)
--- NOTE | 2020-04-03 15:15 | NUR ---
PATIENT ARRIVED FROM THE ER VIA STRETCHER WITH THE AIR CREW OFFICER. PATIENT WAS ALERT ENOUGH TO TRANSFER FROM THE STRETCH AND SLID OVER TO THE BED ON HER OWN. PATIENTS HR ON ARRIVAL IS IN THE 30'S. PATIENT BP IS STABLE. PATIENT IS DROWSY AND NEEDS TO BE WOKE UP OR HER HR DROPS AND SHE BECOMES APNIC. PATIENT HAS A ONE-ON-ONE SITTER AT THE BEDSIDE AT ALL TIMES. PATIENT STATES SHE IS NO LONGER SUICIDAL AND DOES NOT HAVE A PLAN AT THIS TIME. WILL KEEP A STAFF MEMBER AT HER BEDSIDE AT ALL TIMES FOR PATIENTS SAFETY. WILL CONTINUE TO CLOSELY MONITOR.
--- NOTE | 2020-04-03 15:42 | EKG ---
[facility] [address] [place] [address] Signed Sinus bradycardia Incomplete right bundle branch block Borderline ECG No previous ECGs available Confirmed by BRITTANY TEJADA MD ([id number]) on 04/03/2020 3:42:47 PM Electronically Signed By: BRITTANY TEJADA MD 04/03/20 1542 PATIENT NAME: RADHA ALCALA Electrocardiogram DATE OF : [birth year] PHYSICIAN: BRITTANY TEJADA MD REPORT #: [id number] REPORT IS CONFIDENTIAL AND NOT TO BE RELEASED WITHOUT AUTHORIZATION
--- NOTE | 2020-04-03 16:15 | NUR ---
Spoke with Rupa, she is with a sitter keeping her awake after taking a bottle of clonidine. Pt is able to answer questions, but frequently starts to dose off. She states she lives in 1 story home in [facility] [place] [facility] her boyfriend and his dad. She recently was released from snf. States she has gone to snf 14 times. Was in Snf at [place] near [place] for Identity Theft. Was released 1 year ago. PO is [facility]. Pt states she has depression and other [facility] problems. Uses meth. Boyfriend also uses meth, she states they both would like to stop. I called and spoke with Adele from [facility] and she will see patient tomorrow. Rupa states she also see's [facility], and Dr. Hull orders her clonidine, lamictal, and meds for ADHD. She denies use of [facility]. She is currently going to [facility] for counseling. Pt would like to go home to [place] on discharge.
--- NOTE | 2020-04-03 16:15 | NUR ---
CALLED MD TEJADA TO UPDATE ABOUT PATIENTS STATUS. PATIENTS HR IS IN THE 30'S UNLESS STIMULATED. PATIENT FALLS ASLEEP EASILY WITHOUT STIMULATION AND BECOMES APNIC. HAY FARMER AT BEDSIDE FOR ONE ON ONE MONITORING D/T RISK OF HARM TO SELF. PATIENT ADMITTED FOR OD OF CLONIDINE. PER MD TEJADA LETS GIVE ATROPINE. CAN GIVE UP TO 0.02MG/KG. CALLED PHARMACY AND SPOKE WITH THEM ABOUT DOSAGE. THEIR RECOMENDATION IS TO START WITH 1MG AT THIS TIME. SEE NEW ORDERS. WILL CONTINUE TO CLOSELY MONITOR.
--- NOTE | 2020-04-03 16:59 | NUR ---
PATIENTS HR HAS MAINTAINED 70'S SINCE DOSE OF IV ATROPINE. LISA RANGEL AT THE [facility] TO DO ONE ON ONE MONITORING. WILL CONTINUE TO CLOSELY MONITOR. PATIENT HAS EPISODES OF WAKEFULLNESS AND VISITS WITH STAFF AND THEN EPISODES OF TEARFULNESS AND WITHDRAWN AT TIMES. WILL CONTINUE TO CLOSELY MONITOR.
--- NOTE | 2020-04-03 17:57 | NUR ---
PATIENT RESTING AT THIS TIME AND IS MAINTAINING HER AIRWAY. PATIENTS RR-14. SPO2 100%. HR 67. WILL CONTINUE TO CLOSELY MONITOR VITALS CLOSELY AND AWAKEN PATIENT IS SHE BECOMES APNIC. ZYGLO TECHNICIAN MEDICAL CLAIMS ASSISTANT AT PATIENTS BEDSIDE AT ALL TIMES. SPOKE WITH POISION CONTROL AND UPDATED ABOUT PLAN OF CARE AT THIS TIME AND THEY ARE AGREEABLE TO THIS PLAN WITH NO CHANGES. WILL CONTINUE TO CLSOELY MONITOR.
--- NOTE | 2020-04-03 19:41 | NUR ---
RECEIEVED REPORT FROM CONRAD HINKLE. PT DROWSY BUT AWAKES TO VOICE AND LIGHT TOUCH. TRIED TO OPEN EYES. HAS SOME COHERANT AND SOME NONCOHERANT SPEECH. REORIENTED TO HOSPITAL AND TIME. PT QUICKLY BACK TO SLEEP. HR LOW 40'S WHILE SLEEPING, UP TO 55 WHILE AWAKE.
--- NOTE | 2020-04-03 20:00 | NUR ---
DR. TEJADA CALLED AND UPDATED ON PT. HR 38-LOW 40'S WHILE ASLEEP. WHEN AWOKEN, HR BRIEFLY INCREASED TO 55, BUT RETURNED TO 40'S. BP STABLE. ORDER RECEIVED FOR ONE TIME DOSE OF 1MG IV ATROPINE.
--- NOTE | 2020-04-03 20:21 | NUR ---
ADMINISTERED 1MG ATROPINE AND STARTED NEW LR BAG AT 125ML\HR HAVING FINISHED BOLUS. HAD PT REPOSITION ONTO BACK SO THE ASSESSMENT COULD BE FINISHED AND REPOSITION THE MONITOR LEADS TO BETTER MANAGER OF APPLICATION DEVELOPMENT RR. PT COOPERATIVE YET DROWSY. HR NOW IN HIGH 80'S CONTINUALLY.
--- NOTE | 2020-04-03 22:33 | NUR ---
WOKE PT TO SEE IF SHE WANTED TO GET UP TO VOID. PT DENIED NEEDING TO. WAS ABLE TO CARRY ON A LONGER MORE COHERANT CONVERSATION THIS TIME. HR HAS NOW DROPPED INTO THE 50'S AGAIN. WAS 60 WHILE BRIEFLY AWAKE.
--- NOTE | 2020-04-03 23:28 | NUR ---
POISON CONTROL CALLED TO CHECK IN ON PT. UPDATED ON PT'S CONDITION: NO LONGER HAVING APNIC EPISODES REQUIRING FREQUENT AROUSAL, DOSE OF ATROPINE GIVEN AT START OF SHIFT, HEARTRATE TRENDS, AND MOST RECENT BP. ALSO UPDATED HER ON RESULT OF TEST WELL PLANNED LABS IN THE MORNING. ALSO UPDATED HER THAT WE HAVE NOT YET NEEDED TO START A DOPAMINE DRIP. POISON CONTROL AGREES WITH PLAN OF CARE AND STATES BRADYCARDIA IS COMMON AND CAN TAKE A LITTLE WHILE TO RESOLVE; THEY WILL FOLLOW UP IN THE MORNING.
--- NOTE | 2020-04-04 00:28 | NUR ---
DR. TEJADA UPDATED ON PT'S LOW URINE OUTPUT. HR REMAINS MID 40'S WHILE ASLEEP AND INCREASED TO MID 70'S WHILE UP TO BSC. BP REMAINS STABLE. PT IS MORE ALERT AND INTERACTIVE. NO NEW ORDERS AT THIS TIME, WILL RE-CHECK LABS IN THE MORNING PER ORDERS.
--- NOTE | 2020-04-04 01:09 | NUR ---
RECEIVED REPORT FROM CONRAD CUNNINGHAM. pt RESTING IN BED WITH EYES CLOSED, RESPIRATIONS REGULAR AND UNLABORED. BP STABLE, HR 40'S, O2 SAT 100%. THIS RN REMAINS AT BEDSIDE FOR 1:1 OBSERVATION.
--- NOTE | 2020-04-04 01:20 | NUR ---
pt TWITCHED, THEN WOKE. STATED "I HAVE NEVER HAD SO MANY DREAMS WHERE I FELT LIKE I WAS FALLING" INTRODUCATIONS MADE. pt ORIENTED TO PLACE AND SITUATION. HR INCREASED TO 50'S THEN DECREASED BACKE TO LOW 40'S WHEN pt FELL BACK TO SLEEP. NO REQUESTS AT THIS TIME. THIS RN REMAINS 1:1 OBSERVATION.
--- NOTE | 2020-04-04 03:01 | NUR ---
pt HAS WOKEN BREIFLY ON AND OFF, PLEASANT, ORIENTED TO PLACE AND SITUATION. THIS RN REMAINS 1:1 OBSERVATION IN ROOM.
--- NOTE | 2020-04-04 05:04 | NUR ---
pt WOKE TO TAKE A DRINK. STATED "I DON'T HAVE TO GO TO THE BATHROOM YET, PROBABLY NEXT TIME I WAKE UP." ASSESSMENT DONE. DENIES PAIN, CMS INTACT. ALERT AND ORIENTED. UPDATED ON PLAN OF CARE. THIS RN REMAINS AT BEDSIDE FOR 1:1 OBSERVATION.
--- NOTE | 2020-04-04 06:39 | NUR ---
0530 pt WOKE FOR LAB DRAW. SPOKE AT LENGTH WITH pt ABOUT SITUATION. pt REPORTED THAT [facility] IS A "SAFE" PLACE AND HER PRIORITY WAS TO STOP USING DRUGS AND REGAIN CUSTUDY OF HER SON. OFFERED WATER AND TOILETING, pt REFUSED TO VOID AND THIS TIME STATED "MAYBE IN A LITTLE WHILE" NOW RESTING WITH EYES CLOSED AND RESPIRATIONS REGULAR AND UNLABORED. HR 38-40. O2 SAT 97% ON ROOM AIR. THIS RN REMAINS AT BEDSIDE 1:1 OBSERVATION.
--- NOTE | 2020-04-04 06:53 | NUR ---
pt UP TO VOID WITH MUCH ENCOURAGEMENT. URINE CONCENTRATED. STEADY ON FEET. NO COMPLAINTS. RESTING IN BED AT THIS TIME. THIS RN REMAINS AT BEDSIDE 1:1 OBSERVATION.
--- NOTE | 2020-04-04 07:33 | NUR ---
0720: Verbal report recieved from Sherron MARTINES. Pt sleeping at this time and remains 1 on 1 in her room.
--- NOTE | 2020-04-04 08:22 | NUR ---
PT SLEEPING, AWAKES TO VOICE AND ANSWERS QUESTIONS AND IS ORIENTED TO PERSON, PLACE AND TIME. SHE IS DROWSY AND STATES THAT SHE HAS NOT HARDLY SLEPT IN THE LAST 3 DAYS. PUPILS ARE PIN POINTED AT THIS TIME. SHE REMAINS ON Q 15 MINUTE VITAL SIGN CHECKS AND IS ON CONTINOUS HEART MONITOR WHICH IS SB RUNNING AROUND 40 OF WHICH SHE IS NON SYMPTOMATIC WITH GOOD PULSES AND OVER ALL COLOR AND SHE DENIES FEELING DIZZY. BP AT THIS TIME IS 106/67 WITH A MAP OF 74. PT REMAINS A ONE TO ONE SUICIDE WATCH. MAGO MARTINES THE BONE DRIER JUST INFORMED ME THAT SHE IS TO BE SEEN BY "PEER TO PEER" SOMETIME TODAY. SEE ASSESSMENT.
--- NOTE | 2020-04-04 08:45 | NUR ---
PT AWOKE AND DENIES ANY PROBLEMS. SHE IS NOW SITTING UP IN HER BED AND IS EATING HER BREAKFAST.
--- NOTE | 2020-04-04 09:32 | NUR ---
Pt sleeping at this time. HR 44, bp 108/62, map 73, RR 17. Pt remains one on one.
--- NOTE | 2020-04-04 10:29 | NUR ---
PT SLEEPING WITH A REGULAR RESP RATE. PT REMAINS ONE ON ONE.
--- NOTE | 2020-04-04 10:59 | NUR ---
COREY PAUL FROM [facility] IS HERE SPEAKING WITH THE PT AT THIS TIME.
--- NOTE | 2020-04-04 11:28 | NUR ---
PT CONTINUES SPEAKING WITH [facility] STAFF MEMBER COREY AT THIS TIME. VSS.
--- NOTE | 2020-04-04 11:42 | NUR ---
NISH MARTINES CALLED FROM POISON CONTROL AND STATES THAT THE PT SHOULD BE CONTINUED ON TELE UNTIL HER HR IS MAINTAINING IN THE HIGH 50'S TO LOW 60'S. SHE ALSO STATES THAT THE HALF LIFE SHOULD BE X BY 5 WHICH EQUALS 60-80 HOURS FOR OVERDOSE. SHE REQUESTED A CALL BACK WITH A DECLINE IN CONDITION AT [phone]. PT CONTINUES SPEAKING WITH [facility] AT THIS TIME.
--- NOTE | 2020-04-04 11:57 | NUR ---
DR TEJADA UPDATED TO THE PT'S STATUS TO INCLUDE HER LACK OF URINE THIS SHIFT, HR AND BP. SHE WAS ALSO UPDATED TO THE INFORMATION THAT WAS GIVEN TO ME BY POISON CONTROL.
--- NOTE | 2020-04-04 12:04 | NUR ---
Pt just finished speaking with Sanako and Don he is writting a safety plan and is not going to place a hold. Pt continues to deny any lightheadness or other problems. See assessment.
--- NOTE | 2020-04-04 12:25 | NUR ---
Dr Bernard called and notified of the pt being placed on a safety plan and no hold. One on one is no longer required and is being stopped at this time. [facility] does request a call upon the pt being discharged which will be passed on during report. Pt did void as well.
[2020-04-04] MEDS ORDERED: AMANTADINE100 MG PO (12:35)
--- NOTE | 2020-04-04 12:36 | NUR ---
MED REC COMPLETE
--- NOTE | 2020-04-04 13:16 | NUR ---
Pt sleeping at this time. HR 47.
--- NOTE | 2020-04-04 14:11 | NUR ---
PATIENT RESTIN IN BED WITH EYES CLOSED, WOKE FOR THIS DIRECTOR OF INSTRUCTION TO TAKE HER TEMP. FINISHED WITH LUNCH. CALL LIGHT IN REACH, NO OTHER NEEDS AT THIS TIME
--- NOTE | 2020-04-04 14:24 | NUR ---
Pt sleeping and her HR is 39-42, aware and it is requested that she walk. Pt awoke to voice and states she will walk after she eats and naps. Her diet was recently advaced to a regular diet, a meal order was sent to the kitchen as she requested. The pt just received a phone call from Adele for a "Peer to Peer" review.
--- NOTE | 2020-04-04 14:42 | NUR ---
Pt now sitting up at the bedside eating. She denies any problems at this time. HR up to 70.
--- NOTE | 2020-04-04 14:45 | NUR ---
Rupa states her BP runs low with the SBP in the 90's to low 100's baseline.
--- NOTE | 2020-04-04 15:05 | NUR ---
Pt ordered a large meal and ate 100% of it since her diet was advanced. She continues to deny any problems.
--- NOTE | 2020-04-04 15:20 | NUR ---
Pt attempted to call her son and was unable to reach him. She is tearful and states, "I guess it's my fault". She also states, "I need to learn how to deal with my feelings and not just use drugs". She also voices concerns and fears about her PO not allowing her to see her son. Goldbely did see Rupa today and did make a safety plan with her.
--- NOTE | 2020-04-04 15:57 | NUR ---
Pt sleeping, HR 52.
--- NOTE | 2020-04-04 16:36 | NUR ---
PT WAS SLEEPING AND WAS INCONT OF LOOSE STOOL. PT ASSISTED TO THE BR AND FINISHED HAVING HER STOOL. PT CLEANED HERSELF UP AND HER BEDDING WAS CHANGED. PT DENIES ANY ABD PAIN OR ANY OTHER PROBLEMS OTHER THAN THE DIARRHEA. PT ORDERED A SALAD WHICH HAD FISH PASTE IN THE DRESSING, IT IS NOTED ON THE CHART THAT THE PT IS ALLERGIC TO SHELLFISH. THE PT WAS ASKED ABOUT THE ALLERGY AND SHE STATES SHE JUST "HATES" ANYTHING FROM THE [place] AND THAT SHE DOES NOT HAVE ANY ALLERGIES AT ALL. SHE STATES SHE TOLD THEM AT THE CORRECTION SHE IS ALLERGIC SO SHE COULD HAVE SOMETHING DIFFERENT TO EAT. THE PT HAS NOT ALLERGIC SYMPTOMS NOTED AT THIS TIME.
--- NOTE | 2020-04-04 17:16 | NUR ---
Pt appears to be sleeping, HR 45.
--- NOTE | 2020-04-04 18:01 | NUR ---
1750: Pt transfered to room 126 and placed on tele #3.
--- NOTE | 2020-04-04 18:20 | NUR ---
PT AMBULATED TO THE BR WITH A SBA AND WAS STEADY ON HER FEET AND SHE CONTINUES TO DENY ANY LIGHTHEADNESS OR ANY OTHER PROBLMES.
--- NOTE | 2020-04-04 18:55 | NUR ---
Pt sleeping, RR 16 and HR sinus rhythm at 68.
--- NOTE | 2020-04-04 20:00 | NUR ---
SHIFT REPORT RECEIVED FROM CONRAD HOLLOWAY. ASSESSMENT COMPLETED AT THIS TIME. PT IS ALERT/ORIENTED, DENIES PAIN. LUNGS CLEAR, RA. HR REGULAR, TELE #3, HR 55-60S. AFEBRILE. BOWEL TONES ACTIVE, DENIES NAUSEA. SANDWICH BOX PROVIDED PER REQUEST. SKIN INTACT, NO EDEMA NOTED. IV INTACT AND PATENT, IVF INFUSING WNL. PT DENIES FURTHER REQUESTS AT THIS TIME, CALL LIGHT WITHIN REACH.
--- NOTE | 2020-04-04 21:30 | NUR ---
PT CALLED TO USE BATHROOM, UP TO BATHROOM WITHOUT ASSISTANCE ONCE I UNPLUGGED IV PUMP. STEADY ON FEET, DENIES DIZZINESS. PT VOIDED 200ML AND HAD A SMALL AMOUNT OF DIARRHEA. SPOKE WITH PT ABOUT HER MENTAL STATE, SHE REPORTS "NEVER WANTING TO DO THIS AGAIN." SHE ALSO REPORTS WANTING TO BE CLEAN AND STOP USING DRUGS. ENCOURAGED PT TO USE THIS A LEARNING EXPERIENCE, PT SEEMS RECEPTIVE AND OPTIMISTIC. CALL LIGHT WITHIN REACH, NO FURTHER REQUESTS AT THIS TIME.
--- NOTE | 2020-04-04 23:00 | NUR ---
PT APPEARS TO BE SLEEPING AT THIS TIME, NO APPARENT DISTRESS. RESPIRATIONS EVEN AND UNLABORED, RR:15. HR: 70 PER TELE#3. WILL ALLOW FOR REST AND CONTINUE TO MONITOR.
--- NOTE | 2020-04-05 00:15 | NUR ---
SHIFT ASSESSMENT COMPLETED, PT WAS SLEEPING BUT WOKE EASILY WHEN I SPOKE TO HER. DENIES PAIN AND NAUSEA. TELE #3 SHOWS SINUS RHYTHM WITH RATE 60-70. AFEBRILE. REMAINDER OF ASSESSMENT IS UNCHANGED AND BENIGN. IV SITE REMAINS INTACT, IVF INFUSING WNL. PT REPORTS FEELING HOT, PROVIDED PERSONAL FAN. NO OTHER REQUESTS AT THIS TIME. CALL LIGHT WITHIN REACH.
--- NOTE | 2020-04-05 02:29 | NUR ---
PT APPEARS TO BE ASLEEP AT THIS TIME, NO APPARENT DISTRESS. RESPIRATIONS EVEN AND UNLABORED, RR:14. HR: 52 ON TELE#3 AT THIS TIME. WILL ALLOW FOR REST AND CONTINUE TO MONITOR.
--- NOTE | 2020-04-05 04:36 | NUR ---
ASSESSMENT COMPLETED. HR 45 WHEN ASLEEP, UP TO 70'S WHEN AWAKE. REMAINDER OF ASSESSMENT BENIGN AND UNCHANGED. PT UP TO BATHROOM WITH SBA, VOIDED 800ML AND RETURNED TO BED. NEW BAG OF IV FLUIDS HUNG. PT DENIES REQUESTS AT THIS TIME. CALL LIGHT AND BELONGINGS WITHIN REACH.
--- NOTE | 2020-04-05 06:23 | NUR ---
PT CALLED TO USE BATHROOM, WALKED INDEPENDENTLY ONCE I UNPLUGGED IV PUMP. PT REMAINS STEADY ON FEET. HR CURRENTLY 57 PER TELE#3. PT VOIDED 1000ML AND RETURNED TO BED. SHOWED PT HOW TO ORDER BREAKFAST. DENIES FURTHER REQUESTS AT THIS TIME.
--- NOTE | 2020-04-05 07:45 | NUR ---
RECEIVED REPORT FROM RYNE MARTINES. PT LAYING IN BED AT THIS TIME AND CALLS JIE
[2020-04-05] MEDS ORDERED: LEXAPRO20 MG PO (08:29)
[2020-04-05] MEDS ORDERED: AMANTADINE100 MG PO (08:29)
== END 2020-04-05 10:15 | disposition home or self-care (01) ==
LOC: ED 11:45 → CCU 11:46
PROVIDERS: ADMIT Student in an Organized Health Care Education/Training Program
DX: T46.5X2A Poisoning by other antihypertensive drugs, intentional self-harm, initial encounter (principal); R00.1 Bradycardia, unspecified; F90.9 Attention-deficit hyperactivity disorder, unspecified type; F39 Unspecified mood [affective] disorder; F15.10 Other stimulant abuse, uncomplicated; Z91.013 Allergy to seafood; Z79.899 Other long term (current) drug therapy
CPT/HCPCS: 36415; 80048; 80176; 82803; 83735; 84450; 84460; 84702; 85025; 93005; 93010; 96361; 96374; 96376; 99285-25; G0378; G0480; J0461; J2310; J3480; J7030; J7060; J7121; U0002

== ENCOUNTER 2021-04-15 04:01 | Inpatient (IN) | payer OTHER ==
[~2021-04-15 04:01] MED LIST changes: +AMANTADINE100 MG PO; +CLONIDINE HCL0.2 MG PO; +LEXAPRO20 MG PO
--- NOTE | 2021-04-15 04:52 | NUR ---
[facility] RAPID COVID TEST DONE PER ORDER. COVID TEST COLLECTED FROM BOTH NARES W/O ISSUE. PT TOLERATED WELL.
--- NOTE | 2021-04-15 05:38 | PR ---
[facility] [address] [facility] [place], [place] [address] Signed Progress Notes IP Datetime Report Generated by CPN: 04/15/2021 05:38 PROGRESS NOTES: [id number] Impression: Normal Progression of Labor; Non-reassuring Heart Rate Procedures: Scalp Electrode; Sterile Vag Exam Other Plans: close observation VITAL SIGNS: [id number] Vital Signs: Reviewed; Within Normal Limits EXAM: [id number] Contractions: q 2 to 3 min MEMBRANES: [id number] Comments: Prolonged decel but now recovered with position changes. Will continue close observation. FETUS A: [id number] FHR Baseline: 140 Variability: Moderate 6-25bpm Decelerations: None FHR Category: Category II Presentation: Vertex Comments on Fetus A: overall reassuring but berry picker sketchy at times--no obvious decels FETUS B: [id number] Signing Physician: Katty Hull MD Copies: ~ *Electronically Signed* 04/15/21 0538 KATTY HULL MD PATIENT NAME: RADHA ALCALA PROGRESS NOTE DATE OF : 89 PHYSICIAN: KATTY HULL MD RPT #: [id number] REPORT IS CONFIDENTIAL AND NOT TO BE RELEASED WITHOUT AUTHORIZATION
[2021-04-15] MEDS ORDERED: PRENATAL VITAM1 EACH PO (07:28)
[2021-04-15] MEDS ORDERED: IRON325 M1 PO (07:29)
--- NOTE | 2021-04-16 08:42 | PR ---
[facility] [address] [facility] [place], [place] [address] Signed PP Progress Notes Datetime Report Generated by CPN: 04/16/2021 08:42 SUBJECTIVE: [id number] Pain: Within Normal Limits Vital Signs: [id number] Vital Signs: Reviewed; Within Normal Limits EXAM: Ongoing Cardiovascular: Not Done Respiratory: Not Done Abdomen/Uterus: Abnormal Lochia: Normal Vulva/Perineum: Not Done Breasts: Not Done CVA Tenderness: Not Done Extremities: Normal Incision: Not Applicable Progress: Normal Exam Comments: Fundus firm, NT @ U-2. H/H 12.3/35.3, WBC 10.7, plat 178k IMPRESSION/PLAN/PROCEDURES: [id number] Impression: Normal Progression Other Impression: COVID pos Plan: Discharge Procedures: Rhogam Progress Notes: Doing well. She is ready for D/C. Signing Physician: Katty Hull MD Copies: ~ *Electronically Signed* 04/16/21 0842 KATTY HULL MD PATIENT NAME: RADHA ALCALA PROGRESS NOTE DATE OF : [birth year] PHYSICIAN: KATTY HULL MD RPT #: [id number] REPORT IS CONFIDENTIAL AND NOT TO BE RELEASED WITHOUT AUTHORIZATION
== END 2021-04-16 14:30 | disposition home or self-care (01) | DRG 805 ==
LOC: FBCO 04:01 → FBC 04:25
PROVIDERS: ADMIT Obstetrics & Gynecology; ATTEND Obstetrics & Gynecology
PROC: 10E0XZZ Delivery of Products of Conception, External Approach (ICD-10-PCS; principal; 2021-04-15)
PROC: 0UQMXZZ Repair Vulva, External Approach (ICD-10-PCS; 2021-04-15)
PROC: 00HU33Z Insertion of Infusion Device into Spinal Canal, Percutaneous Approach (ICD-10-PCS; 2021-04-15)
PROC: 3E0R3BZ Introduction of Anesthetic Agent into Spinal Canal, Percutaneous Approach (ICD-10-PCS; 2021-04-15)
PROC: 3E0234Z Introduction of Serum, Toxoid and Vaccine into Muscle, Percutaneous Approach (ICD-10-PCS; 2021-04-16)
DX: O98.52 Other viral diseases complicating childbirth (principal); U07.1 COVID-19; Z37.0 Single live birth; O99.12 Other diseases of the blood and blood-forming organs and certain disorders involving the immune mechanism complicating childbirth; O99.324 Drug use complicating childbirth; O26.03 Excessive weight gain in pregnancy, third trimester; Z3A.38 38 weeks gestation of pregnancy; O70.1 Second degree perineal laceration during delivery; O26.893 Other specified pregnancy related conditions, third trimester; Z67.11 Type A blood, Rh negative; F15.11 Other stimulant abuse, in remission; D69.49 Other primary thrombocytopenia
CPT/HCPCS: 01960; 82803; 83030; 85027; 86850; 86900; 86901; C9803; J1200; J2274; J2405; J2550; J2590; J2765; J2790; J2795; J3010; J7121; U0003